=== PATIENT | female | born 1945 | race Caucasian/White ===

== ENCOUNTER 2018-04-29 15:42 | Emergency (ER) | payer OTHER, BC ==
--- NOTE | 2018-04-29 15:59 | PDOC ---
Rapid Medical Evaluation Time Seen by Provider: 04/29/18 15:55 Medical Evaluation: Allergies Allergy/AdvReac Type Severity Reaction Status Date / Time Penicillins Allergy Intermediate Hives Verified 04/09/16 07:29 I have performed a brief in-person evaluation of this patient. The patient presents with a chief complaint of: stomach ache and bad diarrhea since yesterday. However, this has happened every week for the past 5 weeks. Got an appointment with Dr. Patel for 05/19. Has lost 7lbs in 1 week. Patient did have a course of macrobid 6-7 weeks ago prior to onset of symptoms Pertinent physical exam findings: none I have ordered the following: labs, insert IV The patient will proceed to the ED for further evaluation. Discharge Disposition - Diagnosis Abdominal pain, Diarrhea, Weight loss - Referrals - Patient Instructions - Post Discharge Activity
[2018-04-29 16:00] VITALS: BP 109/59; PULSE 83; TEMP 97.4; BMI 23.8
[2018-04-29 17:08] LABS: BASO % 0.7 % (0-2.0); EOS % 1.1 % (0-4.5); HEMOGLOBIN 14.5 GM/dL (10.7-15.3); MCHC 34.6 g/dl (32.0-36.0); MEAN CELL VOLUME 95.5 fl (80-96); MEAN PLT VOLUME 9.8 fl (7.5-11.1); MONO % 8.5 % (3.8-10.2); NEUT % 58.7 % (42.8-82.8); PLATELET COUNT 248 K/MM3 (134-434); RBC 4.39 M/mm3 (3.60-5.2); RDW 12.9 % (11.6-15.6); WHITE BLOOD COUNT 11.8 K/mm3 (4.0-10.0)
[2018-04-29 17:18] LABS: URINE APPEARANCE SLCLOUDY; URINE BILIRUBIN NEGATIVE (<2.0 mg/dL); URINE COLOR AMBER; URINE GLUCOSE (UA) NEGATIVE (NEGATIVE); URINE KETONE TRACE (NEGATIVE); URINE LEUK ESTERASE 1+ (NEGATIVE); URINE NITRITE NEGATIVE (NEGATIVE); URINE PROTEIN 1+ (NEGATIVE)
[2018-04-29 17:20] LABS: EPI CELLS RARE /HPF (FEW); URINE BACTERIA FEW /hpf (NONE SEEN); URINE HYALINE CAST 1 /lpf; URINE MUCUS MANY
[2018-04-29 17:33] LABS: ALBUMIN 4.2 g/dl (3.4-5.0); ANION GAP 12 (8-16); BLOOD UREA NITROGEN 22 mg/dL (7-18); CALCIUM 9.2 mg/dL (8.5-10.1); CHLORIDE 102 mmol/L (98-107); CO2 24 mmol/L (21-32); CREATININE 1.5 mg/dL (0.55-1.02); GLUCOSE,RANDOM 111 mg/dL (74-106); POTASSIUM 3.7 mmol/L (3.5-5.1); SGOT/AST 29 U/L (15-37); SGPT/ALT 40 U/L (12-78); SODIUM 138 mmol/L (136-145)
[2018-04-29 17:35] LABS: ALK PHOS 119 U/L (45-117); BILIRUBIN,TOTAL 1.2 mg/dL (0.2-1.0); TOT PROT 7.7 g/dl (6.4-8.2)
[2018-04-29] MEDS ORDERED: SODIUM CHLORIDE 500 ML IV STA (19:41)
--- NOTE | 2018-04-29 19:42 | PDOC ---
Attending Attestation - HPI HPI: 04/29/18 20:01 The patient is a 72 year old female with a past medical history of lung CA, COPD , pancreatitis, cholecystectomy, laminectomy, and multiple sclerosis who presents to the Emergency Department with intermittent diarrhea for 5 weeks. The patient reports that she will have multiple episode of for 1-2 each of the last 5 weeks. She denies fever, chills, and nausea. - Physicial Exam PE: 04/29/18 20:01 GENERAL: Well-appearing, well-nourished. No apparent distress. HEENT: Normocephalic, atraumatic. PERRL, EOM intact. CARDIOVASCULAR: Normal S1, S2. Regular rate and rhythm. PULMONARY: Clear to auscultation bilaterally. ABDOMEN: Soft, non-distended, non-tender. EXTREMITIES: Normal ROM in all four extremities. No gross deformities. SKIN: Warm, dry. No rash NEUROLOGICAL: No focal neurological deficits. - Medical Decision Making 04/29/18 20:01 Documentation prepared by Arcenio Randle, acting as medical examiner for Manpreet Vail DO. <Arcenio Randle - Last Filed: 04/29/18 20:01> - Resident Resident Name: Filemon Cohen - ED Attending Attestation I have performed the following: I have examined & evaluated the patient, The case was reviewed & discussed with the resident, I agree w/resident's findings & plan, Exceptions are as noted - Medical Decision Making 04/29/18 22:54 Pt treated and released <Manpreet Vail - Last Filed: 04/29/18 22:54>
[2018-04-29] MEDS ORDERED: FAMOTIDINE 20 MG/50 ML IVPB 20 MG/50 ML MG IVPB ONE ×2 (19:50→20:15)
[2018-04-29] MEDS ORDERED: ONDANSETRON 4 MG/2 ML VIAL IVPUSH ONE (19:50)
--- NOTE | 2018-04-29 20:13 | PDOC ---
History of Present Illness - General Chief Complaint: Diarrhea Stated Complaint: DIARRHEA Time Seen by Provider: 04/29/18 15:55 History Source: Patient Exam Limitations: No Limitations - History of Present Illness Initial Comments: 04/29/18 20:01 Patient is a 72F with history of MS, COPD, Lung Cancer s/p RUL resection 10 years ago, former tobacco abuse here today complaining of diarrhea for the past 5 weeks. She reports having 1-2 days of diarrhea per week. She describes the stools as dark brown, denies melena and sweetie blood. Patient states that she's had this problem repeatedly and is set to see Dr Patel from GI on 05/19. Patient was prescribed macrobid for UTI 1 month ago. Patient is presenting today because she is concerned that she is now dehydrated. Endorses associated retching but no vomiting. Denies having having AAA screening. Denies fevers, chills. Denies pain with urination. Endorses vague associated abdominal pain. Past History - Past Medical History Allergies/Adverse Reactions: Allergies Allergy/AdvReac Type Severity Reaction Status Date / Time Penicillins Allergy Intermediate Hives Verified 04/09/16 07:29 Home Medications: Ambulatory Orders Calcium [Natural Calcium] 600 mg PO BID #0 tablet 10/12/13 Cyanocobalamin (Vitamin B-12) [Vitamin B-12] 100 mcg PO DAILY #0 tablet Diltiazem Cd [Cardizem Cd -] 240 mg PO DAILY #0 cap.cd.24h 10/12/13 Glatiramer Acetate [Copaxone] 20 mg SQ DAILY #0 kit 10/12/13 Paroxetine HCl [Paxil -] 10 mg PO DAILY 06/20/14 Simvastatin [Zocor -] 40 mg PO DAILY 06/20/14 Tiotropium [place] [Spiriva] 1 inh PO DAILY 06/20/14 Multivitamins [Multivit ([facility] Formulary)] 1 tab PO DAILY 11/24/15 Pregabalin [Lyrica -] 150 mg PO BID 11/24/15 Aspirin Coated [Ecotrin -] 81 mg PO DAILY #0 11/28/15 Hydrocodone/Ibuprofen [Vicoprofen 200-7.5 mg Tab] 1 tab PO PRN PRN #0 11/28/15 Diclofenac Sodium [Voltaren-Xr] 100 mg PO DAILY #0 04/09/16 Omeprazole 20 mg PO DAILY #14 tablet. 04/29/18 Ondansetron HCl [Zofran] 4 mg PO TID PRN #21 tablet 04/29/18 Sulfamethoxazole/Trimethoprim [Bactrim Ds -] 1 tab PO BID #14 tablet 04/30/18 Anemia: No Asthma: No Cancer: Yes (lung 2006) Cardiac Disorders: Yes (ATRIAL FLUTTER) CVA: No COPD: Yes (DX 2009) CHF: No Dementia: No Diabetes: No GI Disorders: Yes (PANCREATITIS-1994) Disorders: Yes (HX OF FREQUENT UTI'S-LAST 03/2016) HTN: No Hypercholesterolemia: Yes Liver Disease: No Psychiatric Problems: Yes (DEPRESSION) Seizures: No Thyroid Disease: No Other medical history: MS - Surgical History Abdominal Surgery: Yes Appendectomy: Yes () Cardiac Surgery: No Cholecystectomy: Yes (OPEN-) Lung Surgery: Yes (RIGHT UPPER LOBECTOMY 2007) Neurologic Surgery: Yes (LAMINECTOMY-) Orthopedic Surgery: Yes (LEFT FEMUR-07/2014-[facility]) - Family Disease History Family Disease History: Heart Disease: Father, CA: Sister - Reproductive History Therapeutic (s) & number: No - Suicide/Smoking/Psychosocial Hx Smoking Status: No Smoking History: Never smoked Have you smoked in the past 12 months: No Number of Cigarettes Smoked Daily: 20 If you are a former smoker, when did you quit?: 2006 Information on smoking cessation initiated: No 'Breaking Loose' booklet given: 10/09/13 Hx Alcohol Use: No Drug/Substance Use Hx: No Substance Use Type: None Hx Substance Use Treatment: No Review of Systems - Review of Systems Comments:: 04/29/18 20:14 GENERAL/CONSTITUTIONAL: No fever or chills. No weakness. HEAD, EYES, EARS, NOSE AND THROAT: No change in vision. No sore throat. CARDIOVASCULAR: No chest pain or shortness of breath RESPIRATORY: No cough, wheezing, or hemoptysis. GASTROINTESTINAL: Positive for nausea, diarrea. Negative for vomiting. GENITOURINARY: No dysuria, frequency, or change in urination. MUSCULOSKELETAL: No joint or muscle swelling or pain. No neck or back pain. SKIN: No rash NEUROLOGIC: No headache, vertigo, loss of consciousness, or change in strength/ sensation. ENDOCRINE: No increased thirst. +5 pound weight loss HEMATOLOGIC/LYMPHATIC: No anemia, easy bleeding, or history of blood clots. ALLERGIC/IMMUNOLOGIC: No hives or skin allergy. *Physical Exam - Vital Signs Last Vital Signs Temp Pulse Resp BP Pulse Ox 97.4 F L 83 18 109/59 100 04/29/18 15:56 04/29/18 15:56 04/29/18 15:56 04/29/18 15:56 04/29/18 15:56 - Physical Exam Comments: 04/29/18 20:15 GENERAL: Awake, alert, and fully oriented, in no acute distress HEAD: No signs of trauma, normocephalic, atraumatic EYES: PERRLA, EOMI, sclera anicteric, conjunctiva clear ENT: Auricles normal inspection, hearing grossly normal, nares patent, oropharynx clear without exudates. Moist mucosa NECK: Normal ROM, supple, no lymphadenopathy, JVD, or masses LUNGS: No distress, speaks full sentences, clear to auscultation bilaterally HEART: Regular rate and rhythm, normal S1 and S2, no murmurs, rubs or gallops, peripheral pulses normal and equal bilaterally. ABDOMEN: +epigastric abdominal pain, no guarding/rebound. No LLQ/suprapubic tenderness. No CVA tenderness. Pulsatile mass, not able to appreciate size EXTREMITIES: Normal inspection, Normal range of motion, no edema. No clubbing or cyanosis. NEUROLOGICAL: Cranial nerves II through XII grossly intact. Normal speech, no focal sensorimotor deficits SKIN: Warm, Dry, normal turgor, no rashes or lesions noted. ED Treatment Course - LABORATORY CBC & Chemistry Diagram: 04/29/18 16:50 04/29/18 16:50 - ADDITIONAL ORDERS Additional order review: Laboratory Results 04/29/18 04/29/18 16:50 16:50 Sodium 138 Potassium 3.7 Chloride 102 Carbon Dioxide 24 Anion Gap 12 BUN 22 H Creatinine 1.5 H Creat Clearance w eGFR 34.13 Random Glucose 111 H Calcium 9.2 Total Bilirubin 1.2 H D AST 29 ALT 40 Alkaline Phosphatase 119 H Total Protein 7.7 Albumin 4.2 Urine Color Wendy Urine Appearance Slcloudy Urine pH 5.0 Ur Specific [place] 1.024 Urine Protein 1+ H Urine Glucose (UA) Negative Urine Ketones Trace H Urine Blood Negative Urine Nitrite Negative Urine Bilirubin Negative Urine Urobilinogen 2.0 H Ur Leukocyte Esterase 1+ H Urine WBC (Auto) 30 Urine RBC (Auto) 16 Ur Epithelial Cells Rare Urine Bacteria Few Hyaline Casts 1 Urine Mucus Many 04/29/18 16:50 RBC 4.39 MCV 95.5 MCHC 34.6 RDW 12.9 MPV 9.8 Neutrophils % 58.7 D Lymphocytes % 31.0 D Monocytes % 8.5 Eosinophils % 1.1 Basophils % 0.7 D - RADIOLOGY Radiology Studies Ordered: Category Date Time Status ABDOMEN & PELVIS CT W/O CONTR [CT] Stat CT Scan 04/29/18 19:43 Ordered Medical Decision Making - Medical Decision Making 04/29/18 20:16 Patient is 72F with history of aflutter, MS, COPD, lung cancer here today complaining of diarrhea. Vital signs normal and stable. Exam shows epigastric tenderness. DDx includes, but is not limited to: UTI, infectious diarrhea, mesenteric ischemia. Low suspicion for mesenteric ischemia, but will consider it as possible diagnosis. Did not appreciate large mass suspicious for AAA, but did feel pulse in abdomen. Patient is thin, low suspicion for AAA. Will evaluate with cbc, cmp, lipase, ct abd/pelvis. Will treat with fluids, pepcid, zofran. Labs show: Laboratory Tests 11/23/14 07/06/15 04/29/18 12:48 13:00 16:50 WBC 11.8 H D Hgb 14.5 D Plt Count 248 BUN Creatinine 1.1 D 1.2 Ur Leukocyte Esterase Urine WBC (Auto) Urine RBC (Auto) Ur Epithelial Cells Urine Bacteria 04/29/18 04/29/18 16:50 16:50 WBC Hgb Plt Count BUN 22 H Creatinine 1.5 H Ur Leukocyte Esterase 1+ H Urine WBC (Auto) 30 Urine RBC (Auto) 16 Ur Epithelial Cells Rare Urine Bacteria Few CBC shows mild leukocytosis. Cr elevated to 1.5 from baseline of 1.1. UA shows evidence of UTI. Lactate and CT abd/pelvis pending. Will do CT without contrast due to Cr elevation and GFR. 04/29/18 22:54 After pepcid, patient states that her burning gnawing pain has completely resolved. Lactate and lipase had not been drawn. Cancelled as we do not suspect pancreatitis or mesenteric ischemia. 04/29/18 23:39 CT of abdomen shows normal caliber aorta, no acute pathology. Patient continues to feel improved, has GI follow up on 05/[address] Patel. Will discharge home with omeprazole and zofran. Return precautions given. 04/30/18 00:16 Outpatient prescription for UTI forgotten to give patient at discharge. Sent to patient's pharmacy with other prescriptions. Phone call placed at patient's home , message left. *DC/Admit/Observation/Transfer Diagnosis at time of Disposition: Abdominal pain, Diarrhea, Weight loss - Discharge Dispostion Disposition: HOME Condition at time of disposition: Good Decision to Admit order: No - Prescriptions Prescriptions: Omeprazole 20 mg PO DAILY #14 tablet. Ondansetron HCl [Zofran] 4 mg PO TID PRN #21 tablet PRN Reason: Nausea And/Or Vomiting Sulfamethoxazole/Trimethoprim [Bactrim Ds -] 1 tab PO BID #14 tablet - Referrals Referrals: Cedric Calero MD [Primary Care Provider] - - Patient Instructions Printed Discharge Instructions: DI for Diarrhea and Traveler's Diarrhea -- Adult Additional Instructions: You were seen today in the ED for abdominal pain and diarrhea. Please return if you have any new, worsening or concerning symptoms. Please return if your abdominal pain worsens, you cannot tolerate drinking or eating, or if you feel weak. Please follow up with Dr Patel as already scheduled. Please call your PCP tomorrow for additional follow up. - Post Discharge Activity
[2018-04-29] MEDS ORDERED: ONDANSETRON 4 MG/2 ML VIAL ONE (20:14)
[2018-04-29] MEDS ORDERED: ACETAMINOPHEN 325 MG TABLET (FP) PO ONE (21:53)
[2018-04-29] MEDS ORDERED: LACTULOSE 20 GM/30 ML UDC (FOR ORAL USE ONLY) PO ONE (23:08)
[2018-04-29] MEDS ORDERED: ACETAMINOPHEN 325 MG TABLET (FP) ONE (23:52)
[2018-04-30 15:42] LABS: LIPASE 115 U/L (73-393)
--- NOTE | 2018-05-03 07:45 | PDOC ---
Patient Follow-up (Call Back) - Post ED Follow - Up Condition at time of discharge: Good Disposition at time of original discharge: HOME Reason for Call Back: Abnwl. Microbiology (Pt. on Bactrim. UC shows Klebsiella with sensitivity to bactrim. No further action needed at this time.)
== END 2018-04-30 00:48 | disposition home or self-care (01) ==
LOC: JER 15:42
PROC: 3E033GC Introduction of Other Therapeutic Substance into Peripheral Vein, Percutaneous Approach (ICD-10-PCS; principal; 2018-04-29)
PROC: 3E0337Z Introduction of Electrolytic and Water Balance Substance into Peripheral Vein, Percutaneous Approach (ICD-10-PCS; 2018-04-29)
DX: R10.9 Unspecified abdominal pain (principal); R19.7 Diarrhea, unspecified; R63.4 Abnormal weight loss
CPT/HCPCS: 36415; 74176-TC; 80053; 81003; 81015; 83690; 85025; 87086; 87186; 99283-25

== ENCOUNTER 2018-05-28 09:30 | Inpatient (IN) | payer OTHER, BC ==
[2018-05-28 09:40] VITALS: BMI 24.2
--- NOTE | 2018-05-28 10:02 | PDOC ---
History of Present Illness - General Chief Complaint: Diarrhea Stated Complaint: DIARRHEA Time Seen by Provider: 05/28/18 09:35 Past History - Past Medical History Allergies/Adverse Reactions: Allergies Allergy/AdvReac Type Severity Reaction Status Date / Time Penicillins Allergy Intermediate Hives Verified 05/28/18 09:31 Home Medications: Ambulatory Orders Calcium [Natural Calcium] 600 mg PO BID #0 tablet 10/12/13 Paroxetine HCl [Paxil -] 37.5 mg PO DAILY 06/20/14 Multivitamins [Multivit ([facility] Formulary)] 1 tab PO DAILY 11/24/15 Pregabalin [Lyrica -] 200 mg PO BID 11/24/15 Aspirin Coated [Ecotrin -] 81 mg PO DAILY #0 11/28/15 Diclofenac Sodium [Voltaren-Xr] 100 mg PO DAILY #0 04/09/16 Albuterol Sulfate Inhaler - [Ventolin Hfa Inhaler -] 1 - 2 inh PO Q4H PRN Diltiazem HCl [Cartia Xt] 120 mg PO DAILY 05/28/18 Umeclidinium [place] [Incruse Ellipta] 62.5 mcg IH DAILY 05/28/18 Vitamin B Complex 1 each PO DAILY 05/28/18 Anemia: No Asthma: No Cancer: Yes (lung 2006) Cardiac Disorders: Yes (ATRIAL FLUTTER) CVA: No COPD: Yes (DX 2009) CHF: No Dementia: No Diabetes: No GI Disorders: Yes (PANCREATITIS-1994) Disorders: Yes (HX OF FREQUENT UTI'S-LAST 03/2016) HTN: No Hypercholesterolemia: Yes Liver Disease: No Psychiatric Problems: Yes (DEPRESSION) Seizures: No Thyroid Disease: No - Surgical History Abdominal Surgery: Yes Appendectomy: Yes (S) Cardiac Surgery: No Cholecystectomy: Yes (OPEN-) Lung Surgery: Yes (RIGHT UPPER LOBECTOMY 2007) Neurologic Surgery: Yes (LAMINECTOMY-) Orthopedic Surgery: Yes (LEFT FEMUR-07/2014-[facility]) - Family Disease History Family Disease History: Heart Disease: Father, CA: Sister - Reproductive History Therapeutic (s) & number: No - Suicide/Smoking/Psychosocial Hx Smoking Status: No Smoking History: Former smoker Have you smoked in the past 12 months: No Number of Cigarettes Smoked Daily: 20 If you are a former smoker, when did you quit?: 2006 Information on smoking cessation initiated: No 'Breaking Loose' booklet given: 10/09/13 Hx Alcohol Use: No Drug/Substance Use Hx: No Substance Use Type: None Hx Substance Use Treatment: No Abd/GI Specific PMHX - Complaint Specific PMHX Pancreatitis: Yes *Physical Exam - Vital Signs Last Vital Signs Temp Pulse Resp BP Pulse Ox 97.9 F 80 16 161/79 96 05/28/18 09:30 05/28/18 09:30 05/28/18 09:30 05/28/18 09:30 05/28/18 09:30 ED Treatment Course - LABORATORY CBC & Chemistry Diagram: 05/30/18 07:12 05/30/18 07:12 Medical Decision Making - Medical Decision Making 05/30/18 11:24 see my attending note documented separately *DC/Admit/Observation/Transfer Diagnosis at time of Disposition: UTI (urinary tract infection) - Discharge Dispostion Condition at time of disposition: Stable - Referrals - Patient Instructions - Post Discharge Activity
--- NOTE | 2018-05-28 10:05 | PDOC ---
Attending Attestation - Resident Resident Name: VenusNash zamora - ED Attending Attestation I have performed the following: I have examined & evaluated the patient, The case was reviewed & discussed with the resident, I agree w/resident's findings & plan, Exceptions are as noted - HPI HPI: 05/28/18 10:27 72y F hx of panmcreatitis, MS, COPD, lung CA s/p RUL resection, cholecystecomy presents with 10 weeks of intermittent watery stool and abdominal pain, a few watery, yellowish stool for the past 10 weeks, now is watery has wosrening and incraesed frequency since last night associated with sharp, nonradiating epigastric pain. no association or worsening with eating or bms. pt denies any fever/chills, cp, sob, diaphoresis, dysuria, melena, bpr, foul smelling urine. pt was on bactrim recently for a dirty urine during a recent ED visit. pt was here in the ED earlier this month and had a CT noted for thickening of duodenum and stomach during the same visit. pt denies any numbness/tingling/ewakness, headache, cough, cervantes, worsening of sypmtoms with exertion. - Physicial Exam PE: 05/28/18 11:54 ROS: Constitutional - no reported Fever, Chills, HEENT: no reported vision changes, sore throat Respiratory: no reported cough, sob, hemoptysis Cardiac: no reported chest pain, palpitations, light headedness, leg swelling Abd/GI: +abd pain, diarrhea no reported nausea, vomiting, blood per rectum, melena, : no reported dysuria, frequency, discharge Musculskelatal - no reported back pain, joint swelling skin - no reported bruising, erythema, rash neurological: no reported headache, numbness, focal weakness, tingling, ataxia, hematologic: no reported easy bruising, easy bleeding GENERAL: The patient is awake, alert, and fully oriented, Nontoxic - in no acute distress. HEAD: Normocephalic, atraumatic. EYES: extraocular movements intact, sclera anicteric, conjunctiva clear. ENT: Normal voice, Moist mucous membranes. NECK: Normal range of motion, supple LUNGS: Breath sounds equal, clear to auscultation bilaterally. No wheezes, no rhonchi, no rales. HEART: Regular rate and rhythm, normal S1 and S2 without murmur, rub or gallop. ABDOMEN: Soft, nontender, hyperactive bowel sounds. No guarding, no rebound. No CVA tenderness EXTREMITIES: Normal range of motion, no edema. NEUROLOGICAL: No facial assymetry, Normal speech, movnig all 4 extremities sptonaenously and symmetrically PSYCH: Normal mood, normal affect. SKIN: Warm, Dry, normal turgor, - Medical Decision Making 05/28/18 12:14 ddx diarrhea - ?abx related vs viral abd pain - ?pancreatitis vs gastritis pts labs reviewed unremarkble UA suggestive of UTI - prior culture grew klebsiela oxytoca -- urine is now nitrite positive will discuss with her urologist regarding further recommendation as pt is otherwise asypmtomatic 05/28/18 15:14 case was discusesd with Dr. Figueroa (Uro) - requests admission for IVAbx - discsused with dr. Calero (PMD) who requested ID consult (Dr. Adames) after discussion with dR. Adames - agrees with admission for IV abx will admit to med/surg under dr. Chahal service
[2018-05-28] MEDS ORDERED: SODIUM CHLORIDE 1,000 ML IV ONE (10:38)
[2018-05-28] MEDS ORDERED: MAG HYDROX/AL HYDROX/SIMETH -MYLANTA- ORAL SUSPENSION PO ONE (10:41)
[2018-05-28] MEDS ORDERED: FAMOTIDINE 20 MG/50 ML IVPB 20 MG in PREMIX 50 IVPB ONE (10:41)
[2018-05-28 10:44] LABS: BASO % 0.3 % (0-2.0); EOS % 0.3 % (0-4.5); HEMATOCRIT 43.2 % (32.4-45.2); HEMOGLOBIN 14.9 GM/dl (10.7-15.3); LYMPH % 13.6 % (8-40); MCH 33.1 pg (25.7-33.7); MCHC 34.5 g/dl (32.0-36.0); MEAN CELL VOLUME 95.8 fl (80-96); MEAN PLT VOLUME 9.9 fl (7.5-11.1); MONO % 2.7 % (3.8-10.2); NEUT % 83.1 % (42.8-82.8); PLATELET COUNT 253 K/MM3 (134-434); RBC 4.51 M/mm3 (3.60-5.2); RDW 11.9 % (11.6-15.6); WHITE BLOOD COUNT 11.9 K/mm3 (4.0-10.8)
[2018-05-28] MEDS ORDERED: MAG HYDROX/AL HYDROX/SIMETH 30 ML UNIT-DOSE CUP ONE (10:46)
[2018-05-28] MEDS ORDERED: FAMOTIDINE 20 MG/50 ML IVPB 20 MG/50 ML MG IVPB ONE (10:46)
[2018-05-28 10:53] LABS: ALBUMIN 4.3 g/dl (3.5-5.0); ALK PHOS 93 U/L (32-92); ANION GAP 10 (8-16); BILIRUBIN,TOTAL 1.4 mg/dl (0.2-1.0); BLOOD UREA NITROGEN 19 mg/dl (7-18); CALCIUM 9.3 mg/dl (8.4-10.2); CHLORIDE 105 mmol/L (98-107); CO2 23 mmol/L (22-28); GLUCOSE,RANDOM 123 mg/dl (74-106); POTASSIUM 3.9 mmol/L (3.5-5.1); SGOT/AST 36 U/L (10-42); SGPT/ALT 30 U/L (10-40); SODIUM 138 mmol/L (136-145); TOT PROT 7.3 g/dl (6.4-8.3)
--- NOTE | 2018-05-28 10:59 | PDOC ---
History of Present Illness - General Chief Complaint: Diarrhea Stated Complaint: DIARRHEA Time Seen by Provider: 05/28/18 09:35 History Source: Patient, Other ( daughter) Exam Limitations: No Limitations - History of Present Illness Travel History: No Initial Comments: 05/28/18 10:49 72 yo female, PMH significant for Pancreatitis, frequent UTIs (finished last course of antibiotics 2 weeks ago), multiple sclerosis, COPD, lung cancer with RUL resection 10 years ago and a former smoker presents to ED for a 10 week history of abdominal pain and non bloody diarrhea. Pt admits to having 1-2 lose stools per week which are described as watery and yellow. Her pain is located in the epigastric region and is described as gnawing, non radiating and more intense recently. Nothing makes the pain worse or better.Of note, pt was seen at [facility] on April 29 for similar complaints, abdominal CT showed distal gastric wall thickening duodenal sweep with concerns for gastritis. Pt followed up with GI (Dr. Patel) on May 06 and a negative stool sample was attained. Pt denies anyone close contacts with similar s/s, recent travel, f/c/n/v, urinary frequency or dysuria, CP, SOB or exertional s/s. Timing/Duration: reports: intermittent (10 weeks on and off) Past History - Past Medical History Allergies/Adverse Reactions: Allergies Allergy/AdvReac Type Severity Reaction Status Date / Time Penicillins Allergy Intermediate Hives Verified 05/28/18 09:31 Home Medications: Ambulatory Orders Calcium [Natural Calcium] 600 mg PO BID #0 tablet 10/12/13 Paroxetine HCl [Paxil -] 37.5 mg PO DAILY 06/20/14 Simvastatin [Zocor -] 40 mg PO DAILY 06/20/14 Multivitamins [Multivit ([facility] Formulary)] 1 tab PO DAILY 11/24/15 Pregabalin [Lyrica -] 200 mg PO BID 11/24/15 Aspirin Coated [Ecotrin -] 81 mg PO DAILY #0 11/28/15 Diclofenac Sodium [Voltaren-Xr] 100 mg PO DAILY #0 04/09/16 Albuterol Sulfate Inhaler - [Ventolin Hfa Inhaler -] 1 - 2 inh PO Q4H PRN Diltiazem HCl [Cartia Xt] 120 mg PO DAILY 05/28/18 Glatiramer Acetate [Copaxone] 40 mg SQ ASDIR 05/28/18 Umeclidinium [place] [Incruse Ellipta] 62.5 mcg IH DAILY 05/28/18 Vitamin B Complex 1 each PO DAILY 05/28/18 Anemia: No Asthma: No Cancer: Yes (lung 2006) Cardiac Disorders: Yes (ATRIAL FLUTTER) CVA: No COPD: Yes (DX 2009) CHF: No Dementia: No Diabetes: No GI Disorders: Yes (PANCREATITIS-1994) Disorders: Yes (HX OF FREQUENT UTI'S-LAST 03/2016) HTN: No Hypercholesterolemia: Yes Liver Disease: No Psychiatric Problems: Yes (DEPRESSION) Seizures: No Thyroid Disease: No - Surgical History Abdominal Surgery: Yes Appendectomy: Yes () Cardiac Surgery: No Cholecystectomy: Yes (OPEN-) Lung Surgery: Yes (RIGHT UPPER LOBECTOMY 2007) Neurologic Surgery: Yes (LAMINECTOMY-) Orthopedic Surgery: Yes (LEFT FEMUR-07/2014-[facility] PLACEMENT) - Family Disease History Family Disease History: Heart Disease: Father, CA: Sister - Reproductive History Therapeutic (s) & number: No - Suicide/Smoking/Psychosocial Hx Smoking Status: No Smoking History: Former smoker Have you smoked in the past 12 months: No Number of Cigarettes Smoked Daily: 20 If you are a former smoker, when did you quit?: 2006 Information on smoking cessation initiated: No 'Breaking Loose' booklet given: 10/09/13 Hx Alcohol Use: No Drug/Substance Use Hx: No Substance Use Type: None Hx Substance Use Treatment: No Abd/GI Specific PMHX - Complaint Specific PMHX Pancreatitis: Yes Review of Systems - Review of Systems Able to Perform ROS?: Yes Constitutional: No: Chills, Diaphoresis, Fever, Weakness Respiratory: No: Cough, Shortness of Breath, SOB with Exertion Cardiac (ROS): No: Chest Pain, Edema, Palpitations, Syncope ABD/GI: Yes: Diarrhea. No: Abdominal Distended, Abd. Pain w/ defecation, Blood Streaked Bowels, Constipated, Nausea, Vomiting : No: Burning, Dysuria, Discharge, Frequency, Flank Pain, Hematuria Musculoskeletal: No: Back Pain Neurological: No: Headache, Dizziness *Physical Exam - Vital Signs Last Vital Signs Temp Pulse Resp BP Pulse Ox 97.9 F 80 16 161/79 96 05/28/18 09:30 05/28/18 09:30 05/28/18 09:30 05/28/18 09:30 05/28/18 09:30 - Physical Exam General Appearance: Yes: Nourished, Appropriately Dressed. No: Apparent Distress HEENT: positive: EOMI, Normal ENT Inspection Neck: negative: Carotid bruit Respiratory/Chest: positive: Lungs Clear, Normal Breath Sounds. negative: Respiratory Distress, Crackles, Rales, Rhonchi, Stridor, Wheezing Cardiovascular: positive: Regular Rhythm, Regular Rate, S1, S2. negative: Edema , JVD, Murmur Vascular Pulses: Dorsalis-Pedis (R): 4+, Doralis-Pedis (L): 4+ Gastrointestinal/Abdominal: positive: Normal Bowel Sounds, Tender, Soft, Tenderness (epigastric). negative: Pulsatile Mass, Protuberent, Distended, Guarding, Rebound Musculoskeletal: negative: CVA Tenderness Extremity: positive: Normal Inspection. negative: Pedal Edema, Swelling Integumentary: positive: Dry, Warm. negative: Cyanotic, Jaundice Neurologic: positive: dice spotter II-XII NML intact, Fully Oriented, Alert, Normal Mood/ Affect, Normal Response, Motor Strength 5/5 Heart Score/ECG Review - History History: Slightly suspicious - Electrocardiogram EKG: Normal - Age Age: >/= 65 - Risk Factors Risk Factors Heart Score: No Hx Hypercholesterolemia, No Hx Hypertension, No Hx Diabetes, No Hx Obesity Based on the list above the patient has:: 1-2 risk factors - Troponin Troponin: </= normal limit - Score Heart Score - Total: 3 - ECG Impressions Normal ECG: Yes Non-specific ST Elevation: No Ischemic Changes: No ED Treatment Course - LABORATORY CBC & Chemistry Diagram: 05/28/18 10:11 05/28/18 10:14 - ADDITIONAL ORDERS Additional order review: 05/28/18 10:11 RBC 4.51 MCV 95.8 MCHC 34.5 RDW 11.9 MPV 9.9 Neutrophils % 83.1 H Lymphocytes % 13.6 Monocytes % 2.7 L Eosinophils % 0.3 Basophils % 0.3 Medical Decision Making - Medical Decision Making 05/28/18 11:45 72 yo female, PMH of frequent UTIs, pancreatitis, MS presents to ED for a 10 week history of loose stools and epigastric pain. On exam, epigastric tenderness was elicited, Pepcid, Maalox and 1L NS given. DDx includes but is not limited to: ACS, gastritis, UTI, antibiotic associated diarrhea, IBS. Negative CT scan 1 month ago reassuring for no AAA or mesenteric ischemia. CBC, CMP, Lipase and Cardiac profile ordered. Patient resting comfortably, states pain has reduced after receiving Maalox and Pepcid 05/28/18 15:[address] Adames (ID) who recommends inpatient IV antibiotics due to failed outpatient therapies. Also spoke with Dr. Figueroa who would like inpatient IV antibiotics. Spoke with Dr. Wyatt Johnson who will be the admitting physician. *DC/Admit/Observation/Transfer Diagnosis at time of Disposition: UTI (urinary tract infection) Qualifiers: Urinary tract infection type: site unspecified Hematuria presence: without hematuria Qualified Code(s): N39.0 - Urinary tract infection, site not specified - Discharge Dispostion Condition at time of disposition: Stable Decision to Admit order: Yes - Referrals Referrals: Cedric Calero MD [Primary Care Provider] - - Patient Instructions - Post Discharge Activity
[2018-05-28 11:07] LABS: PH,URINE 5.5 (4.5-8); URINE APPEARANCE Cloudy; URINE BILIRUBIN Negative (NEGATIVE); URINE COLOR Amber; URINE GLUCOSE (UA) Negative (NEGATIVE); URINE KETONE 1+ (NEGATIVE); URINE NITRITE Positive (NEGATIVE); URINE PROTEIN Trace (NEGATIVE); URINE UROBILINOGEN 0.2 (0.2-1.0)
[2018-05-28 11:08] LABS: URINE LEUK ESTERASE TRACE (NEGATIVE)
[2018-05-28 11:42] LABS: EPI CELLS FEW /HPF
[2018-05-28 11:43] LABS: URINE BACTERIA MANY /hpf (NEGATIVE)
[2018-05-28 11:48] LABS: LIPASE 106 U/L (73-393)
[2018-05-28] MEDS ORDERED: CEFTRIAXONE 1,000 MG in DEXTROSE 5%-WATER - 50 ML IVPB ONE (14:02)
[2018-05-28] MEDS ORDERED: cefTRIAXone SODIUM 1 GM VIAL ONE (14:07)
[2018-05-28] MEDS ORDERED: ACETAMINOPHEN 650 MG/20.3 ML ORAL SOLUTION (CUPS) PO ONE (14:35)
[2018-05-28] MEDS ORDERED: ACETAMINOPHEN 325 MG TABLET (FP) ONE (14:40)
[2018-05-28] MEDS ORDERED: ALBUTEROL SO4 8 GM HFA INHALER IH PRN (15:39)
[2018-05-28] MEDS ORDERED: PATIENT'S OWN MEDICATION (NON-FORMULARY) (Glatiramer Acetate [Copaxone] 40 MG) SQ SCH (15:45)
[2018-05-28] MEDS ORDERED: HYDROmorphone HCL CARPU-JECT 2 MG/1 ML DISP.SYRIN IVPB PRN (15:59)
--- NOTE | 2018-05-28 16:55 | CON.ID ---
Consult Consult Specialty:: infectious diseases Referred by:: Dr Lai Reason for Consultation:: abd pain,uti - History of Present Illness Chief Complaint: abd pain History of Present Illness: 72y F hx of pancreatitis, MS, COPD, lung CA s/p RUL resection, cholecystecomy presents with 10 weeks of intermittent watery stool and abdominal pain, a few watery, yellowish stool for the past 10 weeks, now is watery has worsening and increased frequency since last night associated with sharp, nonradiating epigastric pain. no association or worsening with eating or bms. pt denies any fever/chills, cp, sob, diaphoresis, dysuria, melena, bpr, foul smelling urine. pt was on bactrim recently for a dirty urine during a recent ED visit. pt was here in the ED earlier this month and had a CT noted for thickening of duodenum and stomach during the same visit. patient has been visiting the urologist frequently and she has failed outpatient treatment couple of times and her urologist has send her here to see if she again has uti and then decide how to manage further and to get iv abx if needed - History Source History Provided By: Patient Limitations to Obtaining History: No Limitations - Alcohol/Substance Use Hx Alcohol Use: No - Smoking History Smoking history: Former smoker Have you smoked in the past 12 months: No Aproximately how many cigarettes per day: 20 If you are a former smoker, when did you quit?: 2006 Home Medications - Allergies Allergies/Adverse Reactions: Allergies Allergy/AdvReac Type Severity Reaction Status Date / Time Penicillins Allergy Intermediate Hives Verified 05/28/18 09:31 - Home Medications Home Medications: Ambulatory Orders Calcium [Natural Calcium] 600 mg PO BID #0 tablet 10/12/13 Paroxetine HCl [Paxil -] 37.5 mg PO DAILY 06/20/14 Multivitamins [Multivit ([facility] Formulary)] 1 tab PO DAILY 11/24/15 Pregabalin [Lyrica -] 200 mg PO BID 11/24/15 Aspirin Coated [Ecotrin -] 81 mg PO DAILY #0 11/28/15 Diclofenac Sodium [Voltaren-Xr] 100 mg PO DAILY #0 04/09/16 Albuterol Sulfate Inhaler - [Ventolin Hfa Inhaler -] 1 - 2 inh PO Q4H PRN Diltiazem HCl [Cartia Xt] 120 mg PO DAILY 05/28/18 Umeclidinium [place] [Incruse Ellipta] 62.5 mcg IH DAILY 05/28/18 Vitamin B Complex 1 each PO DAILY 05/28/18 Review of Systems - Review of Systems Constitutional: reports: No Symptoms Eyes: reports: No Symptoms HENT: reports: No Symptoms Neck: reports: No Symptoms Cardiovascular: reports: No Symptoms Respiratory: reports: No Symptoms Gastrointestinal: reports: Abdominal Pain, Diarrhea Genitourinary: reports: Burning Musculoskeletal: reports: No Symptoms Integumentary: reports: No Symptoms Neurological: reports: No Symptoms Endocrine: reports: No Symptoms Hematology/Lymphatic: reports: No Symptoms Psychiatric: reports: No Symptoms Physical Exam Vital Signs: Vital Signs Temperature 97.9 F 05/28/18 09:30 Pulse Rate 80 05/28/18 09:30 Respiratory Rate 16 05/28/18 09:30 Blood Pressure 161/79 05/28/18 09:30 O2 Sat by Pulse Oximetry (%) 96 05/28/18 09:30 Constitutional: Yes: Well Nourished, No Distress, Calm Eyes: Yes: Conjunctiva Clear HENT: Yes: Atraumatic Neck: Yes: Supple, Trachea Midline Cardiovascular: Yes: Regular Rate and Rhythm Respiratory: Yes: Regular, CTA Bilaterally Gastrointestinal: Yes: Normal Bowel Sounds, Soft Musculoskeletal: Yes: WNL Extremities: Yes: WNL Labs: CBC, BMP 05/28/18 10:11 05/28/18 10:14 Assessment/Plan patient coming to the hospital because of abd pain dirrhoea and repeated uti and failed outpatient treatment for uti uti abd pain dirrhoea dysuria plan patient has been started on ceftriaxone will continue the management await for cx reports rest as per gi
[2018-05-28] MEDS ORDERED: PANTOPRAZOLE SODIUM 40 MG VIAL ONE (16:58)
[2018-05-28] MEDS: PANTOPRAZOLE SODIUM 40 MG VIAL IVPUSH SCH (17:00)
[2018-05-28] MEDS ORDERED: MAGNESIUM 1GM/D5W - 2 GM/200 ML IVPB IVPB ONE (17:35)
--- NOTE | 2018-05-28 19:18 | HP ---
Admitting History and Physical - Primary Care Physician PCP: Cedric Calero - Admission Chief Complaint: Diarrhe and abdominal pain History of Present Illness: 72 yrs old pleasant f multiple medical Co-morbidities ex smoker h/O COPD, Ca Lung s/p Rt UL resection now in remission, HTN, Multiple sclerosis in remission off treatment, recurrent UTI mostly asymptomatic for past many years F/U , patient was on Supprresive Microbid Therapy lately completed PO Bactrim in April 2018 for Kleibsella UTI, patient has been having off and on watery diarrhea with epigastric pain and nausea for past 10 wks previously evaluated at [facility] on 05/03/2018 , patient underwent CT abd that shows Duodenal and gastric wall thickness, post discharge evaluated by GI recommmonded PO Famoytidine, on Friday developed abdominal pain with nausea nd watery diarrhea, pain was situated in epigastric area, crampy, 8/10, couldnt tolerate PO socalled her and dropped a urine sample for evaluation, symptoms perssted yesterday patient passed multiplewatery stool not mixed with blood or mucous , isaías dehydrates so came to Ed for evaluation, mean time urine sample collected at her uroogist office grew E Colli resistant to cipro , ID consulted atmitted for IV abx and further management. No c/o Dysuria, fever chills, CVA tenderness , c/o mild suprapubic tenderness. 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: Multiple Sclerosis Cardiovascular: Yes: HTN, Hyperlipdemia Pulmonary: Yes: COPD Gastrointestinal: Yes: Pancreatitis Hepatobiliary: Yes: Other Heme/Onc: Yes: Other (Ca Lung) Psych: Yes: Anxiety, Depression Musculoskeletal: Yes: Chronic low back pain - Past Surgical History Additional Past Surgical History: Rt lung UL resection - Smoking History Smoking history: Former smoker Have you smoked in the past 12 months: No Aproximately how many cigarettes per day: 20 If you are a former smoker, when did you quit?: 2006 - Alcohol/Substance Use Hx Alcohol Use: No - Social History Usual Living Arrangement: Yes: Alone ADL: Independent History of Recent Travel: No Home Medications - Allergies Allergies/Adverse Reactions: Allergies Allergy/AdvReac Type Severity Reaction Status Date / Time Penicillins Allergy Intermediate Hives Verified 05/28/18 09:31 - Home Medications Home Medications: Ambulatory Orders Calcium [Natural Calcium] 600 mg PO BID #0 tablet 10/12/13 Paroxetine HCl [Paxil -] 37.5 mg PO DAILY 06/20/14 Multivitamins [Multivit ([facility] Formul[facility])] 1 tab PO DAILY 11/24/15 Pregabalin [Lyrica -] 200 mg PO BID 11/24/15 Aspirin Coated [Ecotrin -] 81 mg PO DAILY #0 11/28/15 Diclofenac Sodium [Voltaren-Xr] 100 mg PO DAILY #0 04/09/16 Albuterol Sulfate Inhaler - [Ventolin HFA Inhaler -] 1 - 2 inh PO Q4H PRN Diltiazem HCl [Cartia Xt] 120 mg PO DAILY 05/28/18 Umeclidinium [place] [Incruse Ellipta] 62.5 mcg IH DAILY 05/28/18 Vitamin B Complex 1 each PO DAILY 05/28/18 Atorvastatin Ca [Lipitor] 20 mg PO HS tablet 05/30/18 Cefuroxime Axetil [Ceftin -] 250 mg PO BID 7 Days #14 tablet 05/30/18 Ranitidine [Zantac -] 150 mg PO DAILY #30 tablet 05/30/18 Family Disease History - Family Disease History Family History: Unremarkable Review of Systems - Review of Systems Constitutional: reports: Lethargy, Loss of Appetite, Malaise Eyes: reports: No Symptoms HENT: denies: Difficult Swallowing, Ear Discharge, Ear Pain Neck: denies: Decreased ROM, Lumps, Pain on Movement Cardiovascular: denies: Chest Pain, Edema, Palpitations Respiratory: denies: Cough, Exercise Intolerance, Hemoptysis, Orthopnea, PND Gastrointestinal: reports: Abdominal Pain, Bloating, Diarrhea, Nausea, Vomiting. denies: Melena, Rectal Bleeding Genitourinary: denies: Burning, Discharge, Dysuria, Flank Pain Integumentary: denies: Blister, Bruising, Change in Color Neurological: denies: Change in LOC, Change in Speech, Confusion Endocrine: denies: Excessive Sweating, Flushing, Increased Hunger Hematology/Lymphatic: denies: Easily Bruised, Excessive Bleeding, Swollen Glands Psychiatric: denies: Altered Sleep Pattern, Anxiety, Depression Pain Intensity: 4 Physical Examination Vital Signs: Vital Signs Temperature 98.5 F 05/28/18 10:39 Pulse Rate 86 05/28/18 10:39 Respiratory Rate 16 05/28/18 10:39 Blood Pressure 159/77 05/28/18 10:39 O2 Sat by Pulse Oximetry (%) 96 05/28/18 10:39 Constitutional: Yes: Mild Distress Eyes: Yes: Conjunctiva Clear, EOM Intact HENT: Yes: Atraumatic, Normocephalic Neck: Yes: Supple, Trachea Midline. No: Decreased ROM, Lymphadenopathy Cardiovascular: Yes: Regular Rate and Rhythm, S1, S2. No: JVD, Gallop, Murmur Respiratory: Yes: CTA Bilaterally Gastrointestinal: Yes: Normal Bowel Sounds, Soft, Tenderness, Epigastrium Edema: No Peripheral Pulses: Left Doralis Pedis: 1+, Right Dorsalis Pedis: 1+ Neurological: Yes: Alert, Oriented. No: Aphasia ...Motor Strength: WNL, LUE, LLE, RUE, RLE Psychiatric: Yes: Alert, Oriented. No: Agitated, Suicidal Ideation Labs: CBC, BMP 05/28/18 10:11 05/28/18 10:14 Mag 1.2 Imaging - Results Cat Scan: Report Reviewed (Ct scan abd on 05/01: Duodenal and Gsatric thickening) EKG: Report Reviewed ([address] chnages) Problem List - Problems (1) Abdominal pain Assessment/Plan: Patient present with abd pain diffuse in the setting of UTI and Diarrhea,will start PO as tolerates, received IV Ceftriaxone as per sensitivity will f/u Stool w/u and U culture Code(s): R10.9 - UNSPECIFIED ABDOMINAL PAIN (2) Diarrhea Assessment/Plan: Recurrent diarrhea for past 10days will evaluate for infectious/ non infectious diarrhea last Ct shows Duodenitis F/U Stool H Pylori, Stool culture, Stool WBC and stool ova and parasites, GI consult as per w/u. Code(s): R19.7 - DIARRHEA, UNSPECIFIED (3) UTI (urinary tract infection) Assessment/Plan: As per urine Collected on Friday Grew E Colli resistant to Cipro patient is unable to tolerate PO due to nausea, abd pain and diarrhea will start on IV Ceftriaxone F/U Urine culture result, switch to Po once Gi symptoms resolves. Code(s): N39.0 - URINARY TRACT INFECTION, SITE NOT SPECIFIED Qualifiers: Urinary tract infection type: site unspecified Hematuria presence: without hematuria Qualified Code(s): N39.0 - Urinary tract infection, site not specified (4) Dehydration Assessment/Plan: Due to adirrhea IV Hydration F/U BMP Code(s): E86.0 - DEHYDRATION (5) Hypomagnesemia Assessment/Plan: Mag 1.2 due to GI lose replete MagSo4 2 gm IVSS Code(s): E83.42 - HYPOMAGNESEMIA (6) HTN (hypertension) Assessment/Plan: Well controlled cont all home meds Code(s): I10 - ESSENTIAL (PRIMARY) HYPERTENSION (7) COPD (chronic obstructive pulmonary disease) Assessment/Plan: Ex smoker s/p Rt Partial lung resection Ca Lung at present well controlled on current regimen, cont same. Code(s): J44.9 - CHRONIC OBSTRUCTIVE PULMONARY DISEASE, UNSPECIFIED (8) Carcinoma of lung Assessment/Plan: S/p resection Rt UL now in remission. Code(s): C34.90 - MALIGNANT NEOPLASM OF UNSP PART OF UNSP BRONCHUS OR LUNG Qualifiers: Laterality: right Qualified Code(s): C34.91 - Malignant neoplasm of unspecified part of right bronchus or lung (9) Multiple sclerosis Assessment/Plan: In remission no focal symptoms off meds F/U with Neurology as out patient. Code(s): G35 - MULTIPLE SCLEROSIS Assessment/Plan Active Medications Generic Name Dose Route Start Last Admin Trade Name Freq PRN Reason Stop Dose Admin Albuterol Sulfate 1 puff 05/28/18 15:39 Ventolin Hfa Inhaler - IH Q4H PRN WHEEZING Aspirin 81 mg 05/29/18 10:00 Ecotrin - PO DAILY ROBB Atorvastatin Calcium 20 mg 05/28/18 22:00 05/28/18 21:42 Lipitor - PO 20 mg HS ROBB Administration Diltiazem HCl 120 mg 05/29/18 10:00 Cardizem Cd - PO DAILY ROBB Hydromorphone HCl 1 mg 05/28/18 15:59 Dilaudid Injection - IVPB Q6H PRN PAIN LEVEL 1 - 3 Potassium Chloride/Dextrose/Sod Cl 10 meq in 1,000 mls @ 75 mls/hr 05/28/18 16 :00 05/28/18 22:53 D5-1/2ns+10 Meq Kcl - IV 75 mls/hr ASDIR ROBB Administration Ceftriaxone Sodium 1 gm in 50 mls @ 100 mls/hr 05/29/18 10:00 Rocephin 1gm Ivpb (Pre-Docked) IVPB DAILY ROBB Multivitamins 1 each 05/29/18 10:00 Total B With C - PO DAILY ROBB Multivitamins/Minerals/Vitamin C 1 tab 05/29/18 10:00 Tab-A-Vit - PO DAILY ROBB Non-Formulary Medication 62.5 mcg 05/29/18 10:00 Umeclidinium [place] [Incruse Ellipta] IH DAILY ROBB Pantoprazole Sodium 40 mg 05/28/18 16:00 05/28/18 17:00 Protonix Iv IVPUSH 40 mg DAILY ROBB Administration Paroxetine HCl 37.5 mg 05/29/18 10:00 Paxil - PO DAILY ROBB Pregabalin 200 mg 05/28/18 22:00 05/28/18 21:42 Lyrica - PO 200 mg BID ROBB Administration
[2018-05-28] MEDS: PREGABALIN 50 MG CAPSULE PO SCH (21:42)
[2018-05-28] MEDS: ATORVASTATIN CA 20 MG TABLET (FP) PO SCH (21:42)
[2018-05-28] MEDS: D5-1/2NS+10 MEQ KCL - 10 MEQ/1,000 ML INFUS.BAG IV SCH (22:53)
[2018-05-29 08:18] LABS: BASO % 0.7 % (0-2.0); EOS % 3.8 % (0-4.5); HEMOGLOBIN 13.3 GM/dl (10.7-15.3); LYMPH % 30.5 % (8-40); MCH 33.4 pg (25.7-33.7); MCHC 35.1 g/dl (32.0-36.0); MEAN CELL VOLUME 95.2 fl (80-96); MEAN PLT VOLUME 9.2 fl (7.5-11.1); MONO % 9.5 % (3.8-10.2); NEUT % 55.5 % (42.8-82.8); PLATELET COUNT 208 K/MM3 (134-434); RBC 3.99 M/mm3 (3.60-5.2); RDW 11.8 % (11.6-15.6); WHITE BLOOD COUNT 8.1 K/mm3 (4.0-10.8)
[2018-05-29 08:33] LABS: ALBUMIN 3.5 g/dl (3.5-5.0); ALK PHOS 75 U/L (32-92); ANION GAP 7 (8-16); BILIRUBIN,TOTAL 0.9 mg/dl (0.2-1.0); BLOOD UREA NITROGEN 13 mg/dl (7-18); CHLORIDE 111 mmol/L (98-107); CO2 25 mmol/L (22-28); CREATININE 0.9 mg/dl (0.6-1.3); GLUCOSE,RANDOM 119 mg/dl (74-106); MAGNESIUM 1.8 mg/dL (1.8-2.4); POTASSIUM 4.7 mmol/L (3.5-5.1); SGOT/AST 28 U/L (10-42); SGPT/ALT 23 U/L (10-40); SODIUM 143 mmol/L (136-145)
[2018-05-29] MEDS ORDERED: PT OWN MED DRAWER 7, Y5N ONE (09:41)
[2018-05-29] MEDS: VITAMIN B COMPLEX W/C COMBO TABLET (FP) PO SCH (09:52)
[2018-05-29] MEDS: MULTIVITAMINS (DAILY MVI) TABLET (FP) PO SCH (09:52)
[2018-05-29] MEDS: PANTOPRAZOLE SODIUM 40 MG VIAL IVPUSH SCH (09:54)
[2018-05-29] MEDS: CEFTRIAXONE 1 GM/50 ML BAG IVPB SCH (09:54)
[2018-05-29] MEDS: ASPIRIN COATED 81 MG TABLET.EC PO SCH (09:54)
[2018-05-29] MEDS: PREGABALIN 50 MG CAPSULE PO SCH ×2 (09:54→21:37)
[2018-05-29] MEDS: PARoxetine HCL 10 MG TABLET (FP) PO SCH (09:59)
[2018-05-29] MEDS ORDERED: PATIENT'S OWN MEDICATION (NON-FORMULARY) (Umeclidinium Bromide [Incruse Ellipta] 62.5 MCG) IH SCH (10:00)
--- NOTE | 2018-05-29 10:39 | PN ---
Progress Note, Physician History of Present Illness: no complaints feels better cx report noted - Current Medication List Current Medications: Active Medications Albuterol Sulfate (Ventolin Hfa Inhaler -) 1 puff IH Q4H PRN PRN Reason: WHEEZING Aspirin (Ecotrin -) 81 mg PO DAILY [facility] Last Admin: 05/29/18 09:54 Dose: 81 mg Atorvastatin Calcium (Lipitor -) 20 mg PO HS [facility] Last Admin: 05/28/18 21:42 Dose: 20 mg Diltiazem HCl (Cardizem Cd -) 120 mg PO DAILY [facility] Last Admin: 05/29/18 09:52 Dose: 120 mg Hydromorphone HCl (Dilaudid Injection -) 1 mg IVPB Q6H PRN PRN Reason: PAIN LEVEL 1 - 3 Potassium Chloride/Dextrose/Sod Cl (D5-1/2ns+10 Meq Kcl -) 10 meq in 1,000 mls @ 75 mls/hr IV ASDIR [facility] Last Admin: 05/28/18 22:53 Dose: 75 mls/hr Ceftriaxone Sodium (Rocephin 1gm Ivpb (Pre-Docked)) 1 gm in 50 mls @ 100 mls/ hr IVPB DAILY [facility] Last Admin: 05/29/18 09:54 Dose: 100 mls/hr Multivitamins (Total B With C -) 1 each PO DAILY [facility] Last Admin: 05/29/18 09:52 Dose: 1 each Multivitamins/Minerals/Vitamin C (Tab-A-Vit -) 1 tab PO DAILY [facility] Last Admin: 05/29/18 09:52 Dose: 1 tab Non-Formulary Medication (Umeclidinium [place] [Incruse Ellipta]) 62.5 mcg IH DAILY [facility] Pantoprazole Sodium (Protonix Iv) 40 mg IVPUSH DAILY [facility] Last Admin: 05/29/18 09:54 Dose: 40 mg Paroxetine HCl (Paxil -) 37.5 mg PO DAILY [facility] Last Admin: 05/29/18 09:59 Dose: Not Given Pregabalin (Lyrica -) 200 mg PO BID [facility] Last Admin: 05/29/18 09:54 Dose: 200 mg - Objective Vital Signs: Vital Signs Temperature 97.8 F 05/29/18 09:48 Pulse Rate 62 05/29/18 09:48 Respiratory Rate 17 05/29/18 09:48 Blood Pressure 141/52 05/29/18 09:48 O2 Sat by Pulse Oximetry (%) 92 L 05/29/18 06:14 Constitutional: Yes: No Distress, Calm Cardiovascular: Yes: Regular Rate and Rhythm Respiratory: Yes: Regular, CTA Bilaterally Gastrointestinal: Yes: Normal Bowel Sounds, Soft Musculoskeletal: Yes: WNL Extremities: Yes: WNL Neurological: Yes: Alert, Oriented Psychiatric: Yes: Alert, Oriented Labs: CBC, BMP 05/29/18 07:47 05/29/18 07:47 Assessment/Plan patient coming to the hospital because of abd pain dirrhoea and repeated uti and failed outpatient treatment for uti uti abd pain dirrhoea dysuria plan cx report noted will continue current abx untill we have identification will speak to urologist on further plan when i have all the cx reports and make a plan of management patient stable
--- NOTE | 2018-05-29 11:27 | PN ---
Progress Note, Physician Chief Complaint: Feels improved no BM since yesterday, afebrile c/o Head ache History of Present Illness: 72 yrs old pleasant f multiple medical Co-morbidities ex smoker h/O COPD, Ca Lung s/p Rt UL resection now in remission, HTN, Multiple sclerosis in remission off treatment, recurrent UTI mostly asymptomatic for past many years F/U , patient was on Suppressive Microbid Therapy lately completed PO Bactrim in April 2018 for Kleibsella UTI, patient has been having off and on watery diarrhea with epigastric pain and nausea for past 10 wks, U Culture is growing Fermenters E Colli, although documented PCN allergy but tolerating IV Ceftriaxone - Current Medication List Current Medications: Active Medications Albuterol Sulfate (Ventolin Hfa Inhaler -) 1 puff IH Q4H PRN PRN Reason: WHEEZING Aspirin (Ecotrin -) 81 mg PO DAILY [facility] Last Admin: 05/29/18 09:54 Dose: 81 mg Atorvastatin Calcium (Lipitor -) 20 mg PO HS [facility] Last Admin: 05/28/18 21:42 Dose: 20 mg Diltiazem HCl (Cardizem Cd -) 120 mg PO DAILY [facility] Last Admin: 05/29/18 09:52 Dose: 120 mg Hydromorphone HCl (Dilaudid Injection -) 1 mg IVPB Q6H PRN PRN Reason: PAIN LEVEL 1 - 3 Potassium Chloride/Dextrose/Sod Cl (D5-1/2ns+10 Meq Kcl -) 10 meq in 1,000 mls @ 75 mls/hr IV ASDIR [facility] Last Admin: 05/28/18 22:53 Dose: 75 mls/hr Ceftriaxone Sodium (Rocephin 1gm Ivpb (Pre-Docked)) 1 gm in 50 mls @ 100 mls/ hr IVPB DAILY [facility] Last Admin: 05/29/18 09:54 Dose: 100 mls/hr Multivitamins (Total B With C -) 1 each PO DAILY [facility] Last Admin: 05/29/18 09:52 Dose: 1 each Multivitamins/Minerals/Vitamin C (Tab-A-Vit -) 1 tab PO DAILY [facility] Last Admin: 05/29/18 09:52 Dose: 1 tab Non-Formulary Medication (Umeclidinium [place] [Incruse Ellipta]) 62.5 mcg IH DAILY [facility] Pantoprazole Sodium (Protonix Iv) 40 mg IVPUSH DAILY [facility] Last Admin: 05/29/18 09:54 Dose: 40 mg Paroxetine HCl (Paxil -) 37.5 mg PO DAILY [facility] Last Admin: 05/29/18 09:59 Dose: Not Given Pregabalin (Lyrica -) 200 mg PO BID [facility] Last Admin: 05/29/18 09:54 Dose: 200 mg - Objective Vital Signs: Vital Signs Temperature 97.8 F 05/29/18 09:48 Pulse Rate 62 05/29/18 09:48 Respiratory Rate 17 05/29/18 09:48 Blood Pressure 141/52 05/29/18 09:48 O2 Sat by Pulse Oximetry (%) 92 L 05/29/18 06:14 Constitutional: No distress HEENT: Conjunctiva Clear, EOM Intact, Atraumatic, Normocephalic Neck: Supple, Trachea Midline. No: Decreased ROM, Lymphadenopathy Cardiovascular: Regular Rate and Rhythm, S1, S2. No: JVD, Gallop, Murmur Respiratory: CTA Bilaterally Gastrointestinal: Normal Bowel Sounds, Soft,no Tenderness, EXTEWRMITIES: No Edema c/o Left calf tenderness , Pulses :Left Doralis Pedis: 1+ , Right Dorsalis Pedis: 1+ Neurological: Alert, Oriented. No: Aphasia Motor Strength: WNL, LUE, LLE, RUE , RLE Psychiatric: Yes: Alert, Oriented. No: Agitated, Suicidal Ideation Labs: CBC, BMP 05/29/18 07:47 05/29/18 07:47 Problem List - Problems (1) Abdominal pain Assessment/Plan: Patient present with abd pain diffuse in the setting of UTI and Diarrhea,will start PO as tolerates, received IV Ceftriaxone as per sensitivity will f/u Stool w/u and U culture Code(s): R10.9 - UNSPECIFIED ABDOMINAL PAIN (2) Diarrhea Assessment/Plan: Recurrent diarrhea for past 10days will evaluate for infectious/ non infectios diarrhea last Ct shows Duodenitis F/U Stool H Pylori, Stool culture, Stool WBC and stool ova and parasites, GI consult as per w/u. Code(s): R19.7 - DIARRHEA, UNSPECIFIED (3) UTI (urinary tract infection) Assessment/Plan: As per urine Collected on Friday Grew E Colli resistant to Cipro patient is unable to tolerate PO due to nausea, abd pain and diarrhea will start on IV Ceftriaxone F/U Urine culture result, switch to Po once Gi symptoms resolves. Code(s): N39.0 - URINARY TRACT INFECTION, SITE NOT SPECIFIED Qualifiers: Urinary tract infection type: site unspecified Hematuria presence: without hematuria Qualified Code(s): N39.0 - Urinary tract infection, site not specified (4) Dehydration Assessment/Plan: Due to adirrhea IV Hydration F/U BMP Code(s): E86.0 - DEHYDRATION (5) Hypomagnesemia Assessment/Plan: Rpt Mag 1.8 due will start PO Mag Code(s): E83.42 - HYPOMAGNESEMIA (6) HTN (hypertension) Assessment/Plan: Well controlled cont all home meds Code(s): I10 - ESSENTIAL (PRIMARY) HYPERTENSION (7) COPD (chronic obstructive pulmonary disease) Assessment/Plan: Ex smoker s/p Rt Partial lung resection Ca Lung at present well controlled on current regimen, cont same. Code(s): J44.9 - CHRONIC OBSTRUCTIVE PULMONARY DISEASE, UNSPECIFIED (8) Carcinoma of lung Assessment/Plan: S/p resection Rt UL now in remission. Code(s): C34.90 - MALIGNANT NEOPLASM OF UNSP PART OF UNSP BRONCHUS OR LUNG Qualifiers: Laterality: right Qualified Code(s): C34.91 - Malignant neoplasm of unspecified part of right bronchus or lung (9) Multiple sclerosis Assessment/Plan: In remission no focal symptoms off meds F/U with Neurology as out patient. Code(s): G35 - MULTIPLE SCLEROSIS (10) Hypercholesterolemia Assessment/Plan: Cont Atorvastatin Code(s): E78.00 - PURE HYPERCHOLESTEROLEMIA, UNSPECIFIED
[2018-05-29] MEDS ORDERED: ACETAMINOPHEN 325 MG TABLET (FP) PO PRN (11:30)
[2018-05-29] MEDS: MAGNESIUM OXIDE 400 MG TABLET (FP) PO SCH ×2 (12:32→21:37)
[2018-05-29] MEDS: ENOXAPARIN NA (PORCINE) 40 MG/0.4 ML DISP.SYRIN SQ SCH (12:33)
[2018-05-29] MEDS: D5-1/2NS+10 MEQ KCL - 10 MEQ/1,000 ML INFUS.BAG IV SCH (17:50)
[2018-05-29] MEDS: ATORVASTATIN CA 20 MG TABLET (FP) PO SCH (21:37)
[2018-05-30] MEDS: PANTOPRAZOLE SODIUM 40 MG VIAL IVPUSH SCH (09:00)
[2018-05-30 09:13] LABS: BASO % 0.7 % (0-2.0); EOS % 4.3 % (0-4.5); HEMATOCRIT 41.4 % (32.4-45.2); HEMOGLOBIN 14.6 GM/dl (10.7-15.3); LYMPH % 32.6 % (8-40); MCHC 35.3 g/dl (32.0-36.0); MEAN CELL VOLUME 96.2 fl (80-96); MEAN PLT VOLUME 10.1 fl (7.5-11.1); MONO % 6.7 % (3.8-10.2); NEUT % 55.7 % (42.8-82.8); PLATELET COUNT 226 K/MM3 (134-434); RDW 12.1 % (11.6-15.6); WHITE BLOOD COUNT 8.9 K/mm3 (4.0-10.8)
[2018-05-30 09:17] LABS: ANION GAP 6 (8-16); BLOOD UREA NITROGEN 14 mg/dl (7-18); CALCIUM 9.1 mg/dl (8.4-10.2); CHLORIDE 109 mmol/L (98-107); CO2 26 mmol/L (22-28); CREATININE 0.9 mg/dl (0.6-1.3); GLUCOSE,RANDOM 108 mg/dl (74-106); POTASSIUM 4.5 mmol/L (3.5-5.1); SODIUM 141 mmol/L (136-145)
[2018-05-30] MEDS: ASPIRIN COATED 81 MG TABLET.EC PO SCH (09:48)
[2018-05-30] MEDS: MAGNESIUM OXIDE 400 MG TABLET (FP) PO SCH (09:50)
[2018-05-30] MEDS: PREGABALIN 50 MG CAPSULE PO SCH (09:50)
[2018-05-30] MEDS: PARoxetine HCL 10 MG TABLET (FP) PO SCH (09:50)
[2018-05-30] MEDS: MULTIVITAMINS (DAILY MVI) TABLET (FP) PO SCH (09:51)
[2018-05-30] MEDS: VITAMIN B COMPLEX W/C COMBO TABLET (FP) PO SCH (09:54)
[2018-05-30] MEDS: CEFTRIAXONE 1 GM/50 ML BAG IVPB SCH (09:55)
[2018-05-30] MEDS: ENOXAPARIN NA (PORCINE) 40 MG/0.4 ML DISP.SYRIN SQ SCH (10:00)
--- NOTE | 2018-05-30 10:13 | EKG ---
Test Reason : Blood Pressure : / mmHG Vent. Rate : 078 BPM Atrial Rate : 078 BPM P-R Int : 120 ms QRS Dur : 080 ms QT Int : 400 ms P-R-T Axes : 041 057 042 degrees QTc Int : 456 ms POOR DATA QUALITY, INTERPRETATION MAY BE ADVERSELY AFFECTED NORMAL SINUS RHYTHM NORMAL ECG WHEN COMPARED WITH ECG OF 09-OCT-2013 06:27, NO SIGNIFICANT CHANGE WAS FOUND Confirmed by ESTEBAN RIVAS, ESME ([id number]) on 05/30/2018 10:12:58 AM Referred By: LISANDRA Confirmed By:ESME ORELLANA MD
[2018-05-30] MEDS ORDERED: PT OWN MED DRAWER 7, Y5N ONE (11:12)
[2018-05-30 14:55] VITALS: BP 144/75; PULSE 58; TEMP 97.8
--- NOTE | 2018-05-30 16:44 | DS ---
Physical Examination Vital Signs: Vital Signs Temperature 97.8 F 05/30/18 14:54 Pulse Rate 58 L 05/30/18 14:54 Respiratory Rate 18 05/30/18 14:54 Blood Pressure 144/75 05/30/18 14:54 O2 Sat by Pulse Oximetry (%) 95 05/30/18 14:54 Constitutional: No distress HEENT: Conjunctiva Clear, EOM Intact, Atraumatic, Normocephalic Neck: Supple, Trachea Midline. No: Decreased ROM, Lymphadenopathy Cardiovascular: Regular Rate and Rhythm, S1, S2. No: JVD, Gallop, Murmur Respiratory: CTA Bilaterally Gastrointestinal: Normal Bowel Sounds, Soft,no Tenderness, EXTEWRMITIES: No Edema c/o Left calf tenderness , Pulses :Left Doralis Pedis: 1+ , Right Dorsalis Pedis: 1+ Neurological: Alert, Oriented. No: Aphasia Motor Strength: WNL, LUE, LLE, RUE , RLE Psychiatric: Yes: Alert, Oriented. No: Agitated, Suicidal Ideation Labs: CBC, BMP 05/30/18 07:12 05/30/18 07:12 Discharge Summary Reason For Visit: UTI Current Active Problems COPD (chronic obstructive pulmonary disease) (Acute) Carcinoma of lung (Acute) Dehydration (Acute) HTN (hypertension) (Acute) Hypercholesterolemia (Acute) Hypomagnesemia (Acute) Multiple sclerosis (Acute) UTI (urinary tract infection) (Acute) Hospital Course: 72 yrs old pleasant f multiple medical Co-morbidities ex smoker h/O COPD, Ca Lung s/p Rt UL resection now in remission, HTN, Multiple sclerosis in remission off treatment, recurrent UTI mostly asymptomatic for past many years F/U , patient was on Suppressive Microbid Therapy lately completed PO Bactrim in April 2018 for Kleibsella UTI, patient has been having off and on watery diarrhea with epigastric pain and nausea for past 10 wks, U Culture is growing Fermenters E Colli, although documented PCN allergy but tolerating IV Ceftriaxone, U Culture Grew E Colli resistent to Bactrim and Cipro, Diarrhea resolved Condition: Stable - Instructions Referrals: Cedric Calero MD [Primary Care Provider] - 1 Week Carlos Alberto Patel MD [Staff Physician] - 1 Week Disposition: HOME - Home Medications Comprehensive Discharge Medication List: Ambulatory Orders Calcium [Natural Calcium] 600 mg PO BID #0 tablet 10/12/13 Paroxetine HCl [Paxil -] 37.5 mg PO DAILY 06/20/14 Multivitamins [Multivit ([facility] Formulary)] 1 tab PO DAILY 11/24/15 Pregabalin [Lyrica -] 200 mg PO BID 11/24/15 Aspirin Coated [Ecotrin -] 81 mg PO DAILY #0 11/28/15 Diclofenac Sodium [Voltaren-Xr] 100 mg PO DAILY #0 04/09/16 Albuterol Sulfate Inhaler - [Ventolin HFA Inhaler -] 1 - 2 inh PO Q4H PRN Diltiazem HCl [Cartia Xt] 120 mg PO DAILY 05/28/18 Umeclidinium [place] [Incruse Ellipta] 62.5 mcg IH DAILY 05/28/18 Vitamin B Complex 1 each PO DAILY 05/28/18 Atorvastatin Ca [Lipitor] 20 mg PO HS tablet 05/30/18 Cefuroxime Axetil [Ceftin -] 250 mg PO BID 7 Days #14 tablet 05/30/18 Ranitidine [Zantac -] 150 mg PO DAILY #30 tablet 05/30/18
[2018-05-30] MEDS ORDERED: CEFUROXIME AXETIL 250 MG TABLET PO SCH (22:00)
== END 2018-05-30 17:59 | disposition home or self-care (01) | DRG 690 ==
LOC: FER 09:30 → FM/S 15:40
PROVIDERS: ADMIT Internal Medicine; ATTEND Internal Medicine
DX: N39.0 Urinary tract infection, site not specified (principal); J44.9 Chronic obstructive pulmonary disease, unspecified; I10 Essential (primary) hypertension; G35 Multiple sclerosis; F41.8 Other specified anxiety disorders; M54.5 Low back pain; E78.5 Hyperlipidemia, unspecified; R10.9 Unspecified abdominal pain; R19.7 Diarrhea, unspecified; E83.42 Hypomagnesemia; B96.20 Unspecified Escherichia coli [E. coli] as the cause of diseases classified elsewhere; E86.0 Dehydration; Z87.891 Personal history of nicotine dependence; Z85.118 Personal history of other malignant neoplasm of bronchus and lung
CPT/HCPCS: 36415; 80048; 80053; 81003; 81015; 82550; 82705; 83690; 83735; 84443; 84484; 85025; 87086; 87177; 87186; 87209; 87338; 93005; 93970-TC; 99285-25; J7030

== ENCOUNTER 2019-05-22 11:32 | Inpatient (IN) | payer OTHER, BC ==
[2019-05-22 11:41] VITALS: BMI 22.8
[2019-05-22] MEDS ORDERED: ONDANSETRON 4 MG/2 ML VIAL IVPB ONE (13:30)
[2019-05-22] MEDS ORDERED: SODIUM CHLORIDE 1,000 ML IV ONE (13:30)
[2019-05-22] MEDS ORDERED: ONDANSETRON 4 MG/2 ML VIAL ONE (13:35)
[2019-05-22 16:00] LABS: ALBUMIN 3.9 g/dl (3.4-5.0); BILIRUBIN,TOTAL 1.2 mg/dL (0.2-1); CALCIUM 9.4 mg/dL (8.5-10.1); CREATININE 1.1 mg/dL (0.55-1.3); MAGNESIUM 1.4 mg/dL (1.8-2.4); POTASSIUM 3.9 mmol/L (3.5-5.1); TOT PROT 7.4 g/dl (6.4-8.2)
[2019-05-22 16:07] LABS: BASO % 0.7 % (0-2.0); EOS % 0.4 % (0-4.5); HEMATOCRIT 40.2 % (32.4-45.2); HEMOGLOBIN 13.9 GM/dL (10.7-15.3); LYMPH % 18.1 % (8-40); MCH 32.9 pg (25.7-33.7); MCHC 34.7 g/dl (32.0-36.0); MEAN PLT VOLUME 9.7 fl (7.5-11.1); MONO % 9.4 % (3.8-10.2); NEUT % 71.4 % (42.8-82.8); PLATELET COUNT 226 K/MM3 (134-434); RBC 4.24 M/mm3 (3.60-5.2); RDW 12.3 % (11.6-15.6); WHITE BLOOD COUNT 11.7 K/mm3 (4.0-10.0)
[2019-05-22 16:28] LABS: EPI CELLS 2.8 /HPF (0-5/HPF); HYALINE CASTS 3 /lpf (0-8); PH,URINE 5.5 (5.0-8.0); URINE APPEARANCE CLOUDY; URINE BACTERIA 132.1 /hpf (NEGATIVE); URINE BILIRUBIN NEGATIVE (NEGATIVE); URINE COLOR YELLOW; URINE GLUCOSE (UA) NEGATIVE (NEGATIVE); URINE KETONE 2+ (NEGATIVE); URINE LEUK ESTERASE 2+ (NEGATIVE); URINE NITRITE NEGATIVE (NEGATIVE); URINE PROTEIN TRACE (NEGATIVE); URINE RBC 5 /hpf (0-4); URINE WBC 192 /hpf (0-5)
--- NOTE | 2019-05-22 17:32 | PDOC ---
Documentation entered by Jeannette Garcia SCRIBE, acting as scribe for Matthew Lai MD. Matthew Lai MD: This documentation has been prepared by the Radha rosales Brenda, SCRIBE, under my direction and personally reviewed by me in its entirety. I confirm that the documentation accurately reflects all work, treatment, procedures, and medical decision making performed by me. History of Present Illness - General Chief Complaint: Diarrhea Stated Complaint: WEAKNESS/VOMITING/DEHYDRATED Time Seen by Provider: 05/22/19 12:38 History Source: Patient Exam Limitations: No Limitations - History of Present Illness Travel History: Yes Initial Comments: 05/22/19 14:19 The patient is a year old female, with a significant PMH of pancreatitis, multiple sclerosis, COPD and lung cancer with RUL resection 11 years, ago who presents to the emergency department with 4 days of perfused, watery gold diarrhea approximately 4 times a day, waking her up during sleep. The patient reports feeling a general stomach ache on Friday (05/18/19). She then reports that her symptoms when defecating are burning in the abdomen and post diaphoresis on the left side only, she also notes a strong odor. The patient reports having lost 10 pounds since Friday (05/19/19), with decreased water intake and PO intake, due to nausea and non bloody vomiting. The patient reports her vomiting to be yellowish-green. The patient also notes increased urinary frequency The patient denies chest pain, shortness of breath, headache and dizziness. Denies fever and constipation. Denies dysuria, urgency and hematuria. Allergies: NKA Past surgical history: Gallbladder removal in 1984 Social history: Former smoker. PCP: Dr. Christiano Steele Past History - Past Medical History Allergies/Adverse Reactions: Allergies Allergy/AdvReac Type Severity Reaction Status Date / Time Penicillins Allergy Intermediate Hives Verified 05/22/19 11:36 Home Medications: Ambulatory Orders Calcium [Natural Calcium] 600 mg PO BID #0 tablet 10/12/13 Paroxetine HCl [Paxil -] 37.5 mg PO DAILY 06/20/14 Multivitamins [Multivit ([facility] Formulary)] 1 tab PO DAILY 11/24/15 Pregabalin [Lyrica -] 200 mg PO BID 11/24/15 Aspirin Coated [Ecotrin -] 81 mg PO DAILY #0 11/28/15 Diclofenac Sodium [Voltaren-Xr] 100 mg PO DAILY #0 04/09/16 Albuterol Sulfate Inhaler - [Ventolin HFA Inhaler -] 1 - 2 inh PO Q4H PRN Diltiazem HCl [Cartia Xt] 120 mg PO DAILY 05/28/18 Umeclidinium [place] [Incruse Ellipta] 62.5 mcg IH DAILY 05/28/18 Vitamin B Complex 1 each PO DAILY 05/28/18 Atorvastatin Ca [Lipitor] 20 mg PO HS tablet 05/30/18 Cefuroxime Axetil [Ceftin -] 250 mg PO BID 7 Days #14 tablet 05/30/18 Ranitidine [Zantac -] 150 mg PO DAILY #30 tablet 05/30/18 Anemia: No Asthma: No Cancer: Yes (lung 2006) Cardiac Disorders: Yes (ATRIAL FLUTTER) CVA: No COPD: Yes (DX 2009) CHF: No Dementia: No Diabetes: No GI Disorders: Yes (PANCREATITIS-1994) Disorders: Yes (HX OF FREQUENT UTI'S-LAST 03/2016) HTN: No Hypercholesterolemia: Yes Liver Disease: No Psychiatric Problems: Yes (DEPRESSION) Seizures: No Thyroid Disease: No - Surgical History Abdominal Surgery: Yes Appendectomy: Yes () Cardiac Surgery: No Cholecystectomy: Yes (OPEN-) Lung Surgery: Yes (RIGHT UPPER LOBECTOMY 2007) Neurologic Surgery: Yes (LAMINECTOMY-) Orthopedic Surgery: Yes (LEFT FEMUR-07/2014-[facility]) - Family Disease History Family Disease History: Heart Disease: Father, CA: Sister - Reproductive History Therapeutic (s) & number: No - Suicide/Smoking/Psychosocial Hx Smoking Status: No Smoking History: Never smoked Have you smoked in the past 12 months: No Number of Cigarettes Smoked Daily: 20 If you are a former smoker, when did you quit?: 2006 Information on smoking cessation initiated: No 'Breaking Loose' booklet given: 10/09/13 Hx Alcohol Use: No Drug/Substance Use Hx: No Substance Use Type: None Hx Substance Use Treatment: No Abd/GI Specific PMHX - Complaint Specific PMHX Pancreatitis: Yes Review of Systems - Review of Systems Able to Perform ROS?: Yes Comments:: 05/22/19 14:19 Constitutional: + Diaphoresis. +Weight loss. Pt denies Fever, Chills. HEENT: denies vision changes, sore throat Respiratory: Denies cough, sob, hemoptysis Cardiac: denies chest pain, palpitations, light headedness, leg swelling Abd/GI: +Abdominal pain. +nausea + vomiting + diarrhea. Denies blood per rectum , melena. : +Frequency. Denies dysuria, discharge Musculskelatal - denies back pain, joint swelling Skin - denies bruising, erythema, rash Neurological: denies headache, numbness, focal weakness, tingling, ataxia, weakness Hematologic: denies anemia, easy bruising, easy bleeding *Physical Exam - Vital Signs Last Vital Signs Temp Pulse Resp BP Pulse Ox 97.6 F 84 18 133/65 96 05/22/19 11:37 05/22/19 11:37 05/22/19 11:37 05/22/19 11:37 05/22/19 11:37 - Physical Exam Comments: 05/22/19 14:03 GENERAL: The patient is awake, alert, and fully oriented, Nontoxic - in no acute distress. HEAD: Normocephalic, atraumatic. EYES: extraocular movements intact, sclera anicteric, conjunctiva clear. ENT: Normal voice, Moist mucous membranes. NECK: Normal range of motion, supple LUNGS: Breath sounds equal, clear to auscultation bilaterally. No wheezes, no rhonchi, no rales. HEART: Regular rate and rhythm, normal S1 and S2 without murmur, rub or gallop. ABDOMEN: Soft, mild diffuse tenderness EXTREMITIES: Normal range of motion, no edema. NEUROLOGICAL: No facial assymetry, Normal speech, PSYCH: Normal mood, normal affect. SKIN: Warm, Dry, normal turgor, Heart Score/ECG Review - ECG Impressions Comment:: 05/22/19 17:35 Twelve-lead EKG was performed and reviewed by me. rate of 72 normal sinus rhthm w pacs no st changes sugestive of acute ischemia ED Treatment Course - LABORATORY CBC & Chemistry Diagram: 05/22/19 15:13 05/23/19 12:06 Medical Decision Making - Medical Decision Making 05/22/19 13:24 73y F hx of lung ca (sp lobectomy), copd, MS, presents with complaint of nausea/ vomiting, profuse watery diarrhea 4-6x daily for several days. The diarrhea is foul smelling, yellowish with blood/melena. Last episode of vomiting was friday and was yellowish without blood/coffee grounds. Pt denies any fever/ chills, cp, sob, back pain, numbnes/tingling/weakness. No recent travel or known sick contacts. mild diffuse tendernes to abd ddx - gastroenteritis, enteritis, no risk factors for c-diff pt with frequency - will ro uti will ck labs, including LA will reasess, consider furthe rimaging *DC/Admit/Observation/Transfer Diagnosis at time of Disposition: UTI (lower urinary tract infection), Diarrhea - Discharge Dispostion Condition at time of disposition: Stable - Referrals - Patient Instructions - Post Discharge Activity
--- NOTE | 2019-05-22 17:40 | PDOC ---
*Physical Exam - Vital Signs Last Vital Signs Temp Pulse Resp BP Pulse Ox 97.6 F 84 18 133/65 96 05/22/19 11:37 05/22/19 11:37 05/22/19 11:37 05/22/19 11:37 05/22/19 11:37 ED Treatment Course - LABORATORY CBC & Chemistry Diagram: 05/22/19 15:13 05/22/19 15:13 - ADDITIONAL ORDERS Additional order review: Laboratory Results 05/22/19 05/22/19 05/22/19 16:19 15:13 15:13 Sodium Potassium Chloride Carbon Dioxide Anion Gap BUN Creatinine Est GFR (CKD-EPI)AfAm Est GFR (CKD-EPI)NonAf Random Glucose Lactic Acid 1.3 Calcium Magnesium Total Bilirubin AST ALT Alkaline Phosphatase Total Protein Albumin Lipase 134 Urine Color Yellow Urine Appearance Cloudy Urine pH 5.5 Ur Specific [place] 1.021 Urine Protein Trace Urine Glucose (UA) Negative Urine Ketones 2+ H Urine Blood Trace Urine Nitrite Negative Urine Bilirubin Negative Urine Urobilinogen 1.0 Ur Leukocyte Esterase 2+ H Urine WBC (Auto) 192 Urine RBC (Auto) 5 Urine Casts (Auto) 3 U Epithel Cells (Auto) 2.8 Urine Bacteria (Auto) 132.1 05/22/19 15:13 Sodium 137 Potassium 3.9 Chloride 104 Carbon Dioxide 23 Anion Gap 10 BUN 28.0 H Creatinine 1.1 Est GFR (CKD-EPI)AfAm 57.68 Est GFR (CKD-EPI)NonAf 49.77 Random Glucose 91 Lactic Acid Calcium 9.4 Magnesium 1.4 L Total Bilirubin 1.2 H AST 28 ALT 26 Alkaline Phosphatase 108 Total Protein 7.4 Albumin 3.9 Lipase Urine Color Urine Appearance Urine pH Ur Specific [place] Urine Protein Urine Glucose (UA) Urine Ketones Urine Blood Urine Nitrite Urine Bilirubin Urine Urobilinogen Ur Leukocyte Esterase Urine WBC (Auto) Urine RBC (Auto) Urine Casts (Auto) U Epithel Cells (Auto) Urine Bacteria (Auto) 05/22/19 15:13 RBC 4.24 MCV 95.0 MCHC 34.7 RDW 12.3 MPV 9.7 Neutrophils % 71.4 D Lymphocytes % 18.1 D Monocytes % 9.4 Eosinophils % 0.4 Basophils % 0.7 - Medications Given in the ED: ED Medications Discontinued Medications Generic Name Dose Route Start Last Admin Trade Name Freq PRN Reason Stop Dose Admin Sodium Chloride 1,000 mls @ 1,000 mls/hr 05/22/19 13:30 05/22/19 15:10 Normal Saline - IV 05/22/19 14:29 1,000 mls/hr .Q1H ONE Administration Ondansetron HCl 4 mg 05/22/19 13:30 05/22/19 16:04 Zofran Injection IVPB 05/22/19 13:31 4 mg ONCE ONE Administration Medical Decision Making - Medical Decision Making 05/22/19 17:39 73 yo F presenting with 1 episode of vomiting and 1 episode of diarrhea She was noted to have a pulsatile abdominal mass Pending CT 05/22/19 17:40 Ua equivical/positive Will give Bactrim upon discharge 05/22/19 18:38 05/22/19 19:[address] demonstrates ileitis and enteritis Will plan to admit case reviewed with Dr. Stout She requests consult to GI (pt has seen Dr Patel in the past) Pt has recurrent UTIs (was admitted to [facility] for similar presentation, found to have a UTI, told that she can not take some antibiotic) 05/22/19 20:05 Chart review demonstrates that pt was admitted for diarrhea, had UTI for which she was treated with Ceftriaxone (Resistant to Bactrim, Cipro) Will give Ceftriaxone Will give IV Fluids Consult placed to Dr Patel *DC/Admit/Observation/Transfer Diagnosis at time of Disposition: UTI (lower urinary tract infection) Diarrhea Qualifiers: Diarrhea type: unspecified type Qualified Code(s): R19.7 - Diarrhea, unspecified - Discharge Dispostion Condition at time of disposition: Stable Decision to Admit order: Yes - Referrals Referrals: Cedric Calero MD [Primary Care Provider] - - Patient Instructions - Post Discharge Activity
[2019-05-22] MEDS ORDERED: SODIUM CHLORIDE 1,000 ML IV STA (19:22)
[2019-05-22] MEDS ORDERED: CEFTRIAXONE 1 GM in DEXTROSE 5%-WATER - 50 ML IVPB ONE (20:12)
[2019-05-22] MEDS ORDERED: CEFTRIAXONE 1 GM/50 ML BAG ONE (20:42)
--- NOTE | 2019-05-23 08:39 | EKG ---
Test Reason : Blood Pressure : / mmHG Vent. Rate : 072 BPM Atrial Rate : 071 BPM P-R Int : 128 ms QRS Dur : 078 ms QT Int : 424 ms P-R-T Axes : 008 071 036 degrees QTc Int : 464 ms POOR DATA QUALITY, INTERPRETATION MAY BE ADVERSELY AFFECTED NORMAL SINUS RHYTHM WITH REPOLARIZATION ABNORMALITY Confirmed by ESTEBAN RIVAS, ESME ([id number]) on 05/23/2019 8:38:56 AM Referred By: Confirmed By:ESME ORELLANA MD
[2019-05-23] MEDS ORDERED: ALBUTEROL SO4 8 GM HFA INHALER IH PRN (11:39)
[2019-05-23] MEDS ORDERED: ONDANSETRON 4 MG/2 ML VIAL IVPB PRN (11:40)
[2019-05-23] MEDS ORDERED: ALBUTEROL SO4 2.5/IPRATROPIUM 0.5 INH SOL 3 ML VIAL.NEB. NEB PRN (11:42)
--- NOTE | 2019-05-23 11:46 | HP ---
Admitting History and Physical - Primary Care Physician PCP: Cedric Calero - Admission Chief Complaint: Nausea with Diarrhea History of Present Illness: 73yrs old pleasant f multiple medical Co-morbidities ex smoker h/O COPD, Ca Lung s/p Rt UL resection now in remission, HTN, Multiple sclerosis in remission off treatment, recurrent UTI mostly asymptomatic for past many years F/U , patient was on Suppressive Microbid Therapy present with sever nausea, with Diarrhea since last friday crampy watery no blood or mucous , patient also netted some vomiting followed by dry heaves nad epigastric pain, no fever chills ,nausea, no fever chills,chest pain or palpiation - Past Medical History 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 Cardiovascular: Yes: HTN, Hyperlipdemia Pulmonary: Yes: COPD Gastrointestinal: Yes: Pancreatitis Hepatobiliary: Yes: Other Heme/Onc: Yes: Other Psych: Yes: Anxiety, Depression Musculoskeletal: Yes: Chronic low back pain - Smoking History Smoking history: Former smoker Have you smoked in the past 12 months: No Aproximately how many cigarettes per day: 20 If you are a former smoker, when did you quit?: 2006 - Alcohol/Substance Use Hx Alcohol Use: No - Social History ADL: Independent History of Recent Travel: No Home Medications - Allergies Allergies/Adverse Reactions: Allergies Allergy/AdvReac Type Severity Reaction Status Date / Time Penicillins Allergy Intermediate Hives Verified 05/22/19 11:36 - Home Medications Home Medications: Ambulatory Orders Calcium [Natural Calcium] 600 mg PO BID #0 tablet 10/12/13 Paroxetine HCl [Paxil -] 37.5 mg PO DAILY 06/20/14 Multivitamins [Multivit ([facility] Formulary)] 1 tab PO DAILY 11/24/15 Pregabalin [Lyrica -] 200 mg PO BID 11/24/15 Aspirin Coated [Ecotrin -] 81 mg PO DAILY #0 11/28/15 Diclofenac Sodium [Voltaren-Xr] 100 mg PO DAILY #0 04/09/16 Albuterol Sulfate Inhaler - [Ventolin HFA Inhaler -] 1 - 2 inh PO Q4H PRN Diltiazem HCl [Cartia Xt] 120 mg PO DAILY 05/28/18 Umeclidinium [place] [Incruse Ellipta] 62.5 mcg IH DAILY 07/19/18 Vitamin B Complex 1 each PO DAILY 05/28/18 Atorvastatin Ca [Lipitor] 20 mg PO HS tablet 05/30/18 Cefuroxime Axetil [Ceftin -] 250 mg PO BID 7 Days #14 tablet 05/30/18 Ranitidine [Zantac -] 150 mg PO DAILY #30 tablet 05/30/18 Family Disease History - Family Disease History Family History: Unremarkable Review of Systems - Review of Systems Constitutional: reports: Diaphoresis, Fever Eyes: denies: Blind Spots, Blurred Vision HENT: denies: Difficult Swallowing, Ear Discharge Cardiovascular: denies: Chest Pain Respiratory: denies: Cough, Exercise Intolerance, Hemoptysis Gastrointestinal: reports: Abdominal Pain, Bloating, Diarrhea, Vomiting Musculoskeletal: denies: Back Pain, Crepitus, Decreased ROM, Extremity Pain Integumentary: denies: Blister, Bruising, Change in Color, Eczema, Erythema Neurological: denies: Change in LOC, Change in Speech, Confusion, Incoordination , Syncope, Tremors Hematology/Lymphatic: denies: Easily Bruised, Excessive Bleeding Physical Examination Vital Signs: Vital Signs Temperature 98.6 F 05/23/19 00:00 Pulse Rate 65 05/23/19 00:00 Respiratory Rate 20 05/23/19 00:00 Blood Pressure 150/60 05/23/19 00:00 O2 Sat by Pulse Oximetry (%) 96 05/23/19 00:00 Constitutional: Yes: No Distress, Calm Eyes: Yes: Conjunctiva Clear, EOM Intact HENT: Yes: Atraumatic, Normocephalic Neck: Yes: Supple, Trachea Midline Cardiovascular: Yes: Regular Rate and Rhythm, S1 Respiratory: Yes: Regular, CTA Bilaterally Gastrointestinal: Yes: Normal Bowel Sounds, Soft. No: Tenderness, Epigastrium ...Rectal Exam: Yes: Deferred, Erythema, Guaiac Negative Renal/: No: Anuria, Bladder Distention Musculoskeletal: No: Back Pain, Joint Stiffness Extremities: No: Amputation Edema: No Peripheral Pulses: Left Doralis Pedis: 1+, Right Dorsalis Pedis: 1+ Neurological: Yes: Alert, Oriented ...Motor Strength: LUE, LLE, RUE, RLE Labs: CBC, BMP 05/22/19 15:13 05/22/19 15:13 Imaging - Results Cat Scan: Report Reviewed (Abd ? Jejunal dilatation) EKG: Report Reviewed (NSr no acute St T chnages) Problem List - Problems (1) Diarrhea Assessment/Plan: improving Iv hydration, consider C diff and WBC if recurrence, IV Hydration F/u Pending w/u Code(s): R19.7 - DIARRHEA, UNSPECIFIED Qualifiers: Diarrhea type: unspecified type Qualified Code(s): R19.7 - Diarrhea, unspecified (2) UTI (lower urinary tract infection) Assessment/Plan: F/U Culture IV Ceftrixone Code(s): N39.0 - URINARY TRACT INFECTION, SITE NOT SPECIFIED (3) Hypomagnesemia Assessment/Plan: Repleted Code(s): E83.42 - HYPOMAGNESEMIA (4) COPD (chronic obstructive pulmonary disease) Assessment/Plan: sr=table cont current management Code(s): J44.9 - CHRONIC OBSTRUCTIVE PULMONARY DISEASE, UNSPECIFIED (5) HTN (hypertension) Assessment/Plan: Well controlled cont home meds Code(s): I10 - ESSENTIAL (PRIMARY) HYPERTENSION (6) Carcinoma of lung Assessment/Plan: S/P resection Code(s): C34.90 - MALIGNANT NEOPLASM OF UNSP PART OF UNSP BRONCHUS OR LUNG Qualifiers: Laterality: right Qualified Code(s): C34.91 - Malignant neoplasm of unspecified part of right bronchus or lung (7) Multiple sclerosis Assessment/Plan: in remission not on any treatment Code(s): G35 - MULTIPLE SCLEROSIS (8) Hypercholesterolemia Assessment/Plan: on Sttain Code(s): E78.00 - PURE HYPERCHOLESTEROLEMIA, UNSPECIFIED (9) Nausea Assessment/Plan: NPO except meds IV PPI IV zofran IV hydration. Code(s): R11.0 - NAUSEA
[2019-05-23] MEDS ORDERED: MAGNESIUM SULF 50% (8.12 MEQ/2 ML-1 GM VIAL) IVPB ONE (12:23)
[2019-05-23 12:54] LABS: BLOOD UREA NITROGEN 20.7 mg/dL (7-18); CALCIUM 8.5 mg/dL (8.5-10.1); CREATININE 0.8 mg/dL (0.55-1.3); MAGNESIUM 1.3 mg/dL (1.8-2.4); POTASSIUM 3.8 mmol/L (3.5-5.1)
[2019-05-23] MEDS: PANTOPRAZOLE SODIUM 40 MG VIAL IVPUSH SCH (14:44)
[2019-05-23] MEDS ORDERED: cefTRIAXone SODIUM 1 GM VIAL ONE (15:08)
[2019-05-23] MEDS ORDERED: DEXTROSE 5%-WATER - 50 ML IVPB ONE (15:08)
[2019-05-23] MEDS: CEFTRIAXONE 1 GM in DEXTROSE 5%-WATER - 50 ML IVPB SCH (16:26)
[2019-05-23] MEDS: PREGABALIN 100 MG CAPSULE PO SCH (21:22)
[2019-05-23] MEDS: ATORVASTATIN CA 20 MG TABLET (FP) PO SCH (21:22)
[2019-05-23] MEDS ORDERED: ACETAMINOPHEN 325 MG TABLET (FP) PO PRN (22:59)
[2019-05-24 08:22] LABS: BASO % 0.9 % (0-2.0); EOS % 2.5 % (0-4.5); HEMATOCRIT 34.3 % (32.4-45.2); LYMPH % 24.8 % (8-40); MCH 33.5 pg (25.7-33.7); MCHC 35.1 g/dl (32.0-36.0); MEAN CELL VOLUME 95.4 fl (80-96); MEAN PLT VOLUME 9.4 fl (7.5-11.1); MONO % 8.2 % (3.8-10.2); NEUT % 63.6 % (42.8-82.8); PLATELET COUNT 181 K/MM3 (134-434); RBC 3.59 M/mm3 (3.60-5.2); RDW 12.2 % (11.6-15.6); WHITE BLOOD COUNT 7.8 K/mm3 (4.0-10.0)
[2019-05-24 09:07] LABS: BILIRUBIN,TOTAL 0.6 mg/dL (0.2-1); BLOOD UREA NITROGEN 17.5 mg/dL (7-18); CALCIUM 8.6 mg/dL (8.5-10.1); CREATININE 0.8 mg/dL (0.55-1.3); POTASSIUM 3.4 mmol/L (3.5-5.1); TOT PROT 5.6 g/dl (6.4-8.2)
[2019-05-24] MEDS ORDERED: PARoxetine HCL 10 MG TABLET ONE (09:46)
[2019-05-24] MEDS ORDERED: PT OWN MED DRAWER 7, Y5N ONE (09:47)
[2019-05-24] MEDS ORDERED: DEXTROSE 5%-WATER - 50 ML IVPB ONE (09:47)
[2019-05-24] MEDS ORDERED: cefTRIAXone SODIUM 1 GM VIAL ONE (09:47)
[2019-05-24] MEDS ORDERED: PARoxetine HCL 20 MG TABLET ONE (09:47)
[2019-05-24] MEDS: D5-1/2NS+20 MEQ KCL - 20 MEQ/1,000 ML INFUS.BAG IV SCH ×2 (09:49→23:42)
[2019-05-24] MEDS: CEFTRIAXONE 1 GM in DEXTROSE 5%-WATER - 50 ML IVPB SCH (09:50)
[2019-05-24] MEDS: PANTOPRAZOLE SODIUM 40 MG VIAL IVPUSH SCH (09:50)
[2019-05-24] MEDS: ENOXAPARIN NA (PORCINE) 40 MG/0.4 ML DISP.SYRIN SQ SCH (09:51)
[2019-05-24] MEDS: PREGABALIN 100 MG CAPSULE PO SCH ×2 (09:51→21:09)
[2019-05-24] MEDS: PAROXETINE HCL 20 MG, PAROXETINE HCL 10 MG PO SCH (09:51)
[2019-05-24] MEDS: ASPIRIN COATED 81 MG TABLET.EC PO SCH (09:52)
[2019-05-24] MEDS ORDERED: PARoxetine HCL 30 MG TABLET PO SCH (10:00)
[2019-05-24] MEDS ORDERED: PATIENT'S OWN MEDICATION (NON-FORMULARY) (Umeclidinium Bromide [Incruse Ellipta] 62.5 MCG) IH SCH (10:00)
[2019-05-24] MEDS ORDERED: MAGNESIUM OXIDE 400 MG TABLET (FP) PO ONE (10:00)
[2019-05-24] MEDS: ATORVASTATIN CA 20 MG TABLET (FP) PO SCH (21:09)
--- NOTE | 2019-05-25 08:56 | PN ---
Progress Note, Physician Chief Complaint: Feels better History of Present Illness: Admitted with diarrhea ,feels better,no diarrhea today - Current Medication List Current Medications: Active Medications Acetaminophen (Tylenol -) 650 mg PO Q6H PRN PRN Reason: FEVER Albuterol Sulfate (Ventolin Hfa Inhaler -) 2 puff IH Q4H PRN PRN Reason: WHEEZING Albuterol/Ipratropium (Duoneb -) 1 amp NEB Q6H PRN PRN Reason: SHORTNESS OF BREATH Aspirin (Ecotrin -) 81 mg PO DAILY [facility] Last Admin: 05/24/19 09:52 Dose: 81 mg Atorvastatin Calcium (Lipitor -) 20 mg PO HS [facility] Last Admin: 05/24/19 21:09 Dose: 20 mg Diltiazem HCl (Cardizem Cd -) 120 mg PO DAILY [facility] Last Admin: 05/24/19 09:52 Dose: 120 mg Enoxaparin Sodium (Lovenox -) 40 mg SQ DAILY [facility] Last Admin: 05/24/19 09:51 Dose: 40 mg Ceftriaxone Sodium 1 gm/ (Dextrose) 50 mls @ 100 mls/hr IVPB DAILY [facility] Last Admin: 05/24/19 09:50 Dose: 100 mls/hr Potassium Chloride/Dextrose/Sod Cl (D5-1/2ns+20 Meq Kcl -) 20 meq in 1,000 mls @ 100 mls/hr IV ASDIR [facility] Last Admin: 05/24/19 23:42 Dose: 100 mls/hr Non-Formulary Medication (Umeclidinium [place] [Incruse Ellipta]) 62.5 mcg IH DAILY [facility] Ondansetron HCl (Zofran Injection) 4 mg IVPB Q6H PRN PRN Reason: NAUSEA Last Admin: 05/23/19 13:16 Dose: 4 mg Pantoprazole Sodium (Protonix Iv) 40 mg IVPUSH DAILY [facility] Last Admin: 05/24/19 09:50 Dose: 40 mg Paroxetine HCl 20 mg/ (Paroxetine HCl 10 mg) 30 mg PO DAILY [facility] Last Admin: 05/24/19 09:51 Dose: 30 mg Pregabalin (Lyrica -) 200 mg PO BID [facility] Last Admin: 05/24/19 21:09 Dose: 200 mg - Objective Vital Signs: Vital Signs Temperature 98.2 F 05/25/19 07:29 Pulse Rate 68 05/25/19 07:29 Respiratory Rate 20 05/25/19 07:29 Blood Pressure 137/63 05/25/19 07:29 O2 Sat by Pulse Oximetry (%) 94 L 05/24/19 21:00 Constitutional: Yes: No Distress Eyes: Yes: WNL HENT: Yes: WNL Neck: Yes: WNL Cardiovascular: Yes: WNL Respiratory: Yes: WNL Gastrointestinal: Yes: Normal Bowel Sounds ...Rectal Exam: Yes: Deferred Breast(s): Yes: WNL Musculoskeletal: Yes: WNL Neurological: Yes: Alert Labs: CBC, BMP 05/24/19 08:02 05/24/19 08:02 Assessment/Plan Advance diet
[2019-05-25] MEDS ORDERED: PARoxetine HCL 20 MG TABLET ONE (09:19)
[2019-05-25] MEDS ORDERED: cefTRIAXone SODIUM 1 GM VIAL ONE (09:19)
[2019-05-25] MEDS ORDERED: PARoxetine HCL 10 MG TABLET ONE (09:19)
[2019-05-25] MEDS ORDERED: DEXTROSE 5%-WATER - 50 ML IVPB ONE (09:20)
[2019-05-25] MEDS: D5-1/2NS+20 MEQ KCL - 20 MEQ/1,000 ML INFUS.BAG IV SCH ×2 (10:11→21:01)
[2019-05-25] MEDS: CEFTRIAXONE 1 GM in DEXTROSE 5%-WATER - 50 ML IVPB SCH (10:12)
[2019-05-25] MEDS: PANTOPRAZOLE SODIUM 40 MG VIAL IVPUSH SCH (10:12)
[2019-05-25] MEDS: ASPIRIN COATED 81 MG TABLET.EC PO SCH (10:14)
[2019-05-25] MEDS: PREGABALIN 100 MG CAPSULE PO SCH ×2 (10:14→21:01)
[2019-05-25] MEDS: PAROXETINE HCL 20 MG, PAROXETINE HCL 10 MG PO SCH (10:14)
[2019-05-25] MEDS: ENOXAPARIN NA (PORCINE) 40 MG/0.4 ML DISP.SYRIN SQ SCH (10:14)
[2019-05-25] MEDS: ATORVASTATIN CA 20 MG TABLET (FP) PO SCH (21:01)
[2019-05-26 08:48] LABS: HEMATOCRIT 36.2 % (32.4-45.2); HEMOGLOBIN 12.8 GM/dL (10.7-15.3); MCH 33.4 pg (25.7-33.7); MCHC 35.5 g/dl (32.0-36.0); MEAN CELL VOLUME 94.1 fl (80-96); MEAN PLT VOLUME 9.9 fl (7.5-11.1); PLATELET COUNT 207 K/MM3 (134-434); RBC 3.84 M/mm3 (3.60-5.2); RDW 12.2 % (11.6-15.6); WHITE BLOOD COUNT 10.2 K/mm3 (4.0-10.0)
--- NOTE | 2019-05-26 08:55 | DS ---
Physical Examination Vital Signs: Vital Signs Temperature 98.7 F 05/26/19 08:14 Pulse Rate 68 05/26/19 08:14 Respiratory Rate 20 05/26/19 08:14 Blood Pressure 107/44 L 05/26/19 08:14 O2 Sat by Pulse Oximetry (%) 94 L 05/25/19 10:00 Findings/Remarks: Feels better,no diarrhea Constitutional: Yes: No Distress Eyes: Yes: WNL HENT: Yes: WNL Neck: Yes: WNL Cardiovascular: Yes: WNL Respiratory: Yes: WNL Gastrointestinal: Yes: WNL ...Rectal Exam: Yes: Deferred Renal/: Yes: WNL Breast(s): Yes: WNL Musculoskeletal: Yes: WNL Neurological: Yes: Alert ...Motor Strength: WNL Psychiatric: Yes: WNL Discharge Summary Reason For Visit: URINARY TRACT INFECTION,DIARRHEA,DEHYDRATION Current Active Problems Diarrhea (Acute) Hypomagnesemia (Acute) UTI (lower urinary tract infection) (Acute) Condition: Stable - Instructions - Home Medications Comprehensive Discharge Medication List: Ambulatory Orders Calcium [Natural Calcium] 600 mg PO BID #0 tablet 10/12/13 Paroxetine HCl [Paxil -] 37.5 mg PO DAILY 06/20/14 Multivitamins [Multivit ([facility] Formulary)] 1 tab PO DAILY 11/24/15 Pregabalin [Lyrica -] 200 mg PO BID 11/24/15 Aspirin Coated [Ecotrin -] 81 mg PO DAILY #0 11/28/15 Diclofenac Sodium [Voltaren-Xr] 100 mg PO DAILY #0 04/09/16 Albuterol Sulfate Inhaler - [Ventolin HFA Inhaler -] 1 - 2 inh PO Q4H PRN Diltiazem HCl [Cartia Xt] 120 mg PO DAILY 05/28/18 Umeclidinium [place] [Incruse Ellipta] 62.5 mcg IH DAILY 05/28/18 Vitamin B Complex 1 each PO DAILY 05/28/18 Atorvastatin Ca [Lipitor] 20 mg PO HS tablet 05/30/18 Cefuroxime Axetil [Ceftin -] 250 mg PO BID 7 Days #14 tablet 05/30/18 Ranitidine [Zantac -] 150 mg PO DAILY #30 tablet 05/30/18
[2019-05-26] MEDS ORDERED: PARoxetine HCL 20 MG TABLET ONE (09:16)
[2019-05-26] MEDS ORDERED: PARoxetine HCL 10 MG TABLET ONE (09:16)
[2019-05-26] MEDS ORDERED: cefTRIAXone SODIUM 1 GM VIAL ONE (09:17)
[2019-05-26] MEDS ORDERED: DEXTROSE 5%-WATER - 50 ML IVPB ONE (09:17)
[2019-05-26] MEDS: PANTOPRAZOLE SODIUM 40 MG VIAL IVPUSH SCH (09:20)
[2019-05-26] MEDS: PAROXETINE HCL 20 MG, PAROXETINE HCL 10 MG PO SCH (09:20)
[2019-05-26] MEDS: ASPIRIN COATED 81 MG TABLET.EC PO SCH (09:21)
[2019-05-26] MEDS: PREGABALIN 100 MG CAPSULE PO SCH (09:21)
[2019-05-26] MEDS: ENOXAPARIN NA (PORCINE) 40 MG/0.4 ML DISP.SYRIN SQ SCH (09:23)
[2019-05-26 09:24] LABS: ALBUMIN 3.1 g/dl (3.4-5.0); BILIRUBIN,TOTAL 1.1 mg/dL (0.2-1); BLOOD UREA NITROGEN 8.7 mg/dL (7-18); CALCIUM 9.2 mg/dL (8.5-10.1); CREATININE 0.9 mg/dL (0.55-1.3); TOT PROT 6.3 g/dl (6.4-8.2)
[2019-05-26] MEDS: CEFTRIAXONE 1 GM in DEXTROSE 5%-WATER - 50 ML IVPB SCH (09:24)
[2019-05-26 11:08] VITALS: BP 136/56; PULSE 80; TEMP 98.4
== END 2019-05-26 11:07 | disposition home or self-care (01) | DRG 690 ==
LOC: JER 11:32 → JERBED 20:09 → J5S 23:43
PROVIDERS: ADMIT Internal Medicine; ATTEND Internal Medicine
DX: N39.0 Urinary tract infection, site not specified (principal); I48.92 Unspecified atrial flutter; K52.9 Noninfective gastroenteritis and colitis, unspecified; G35 Multiple sclerosis; J44.9 Chronic obstructive pulmonary disease, unspecified; R63.4 Abnormal weight loss; R19.7 Diarrhea, unspecified; Z87.891 Personal history of nicotine dependence; E83.42 Hypomagnesemia; E78.00 Pure hypercholesterolemia, unspecified; I10 Essential (primary) hypertension
CPT/HCPCS: 36415; 74177-TC; 80048; 80053; 81003; 83605; 83690; 83735; 84443; 85025; 85027; 93005; 93010; 99285-25; J7030

== ENCOUNTER 2024-01-21 13:28 | Emergency (ER) | payer OTHER, BC ==
[2024-01-21 13:37] VITALS: BP 130/49; PULSE 78; RESP 18; TEMP 97.4; BMI 18.1
[2024-01-21] MEDS: MAG HYDROX/AL HYDROX/SIMETH 30 ML UNIT-DOSE CUP PO ONE (14:30)
[2024-01-21] MEDS ORDERED: ACETAMINOPHEN INJECTION 100 ML IVPB ONE (14:49)
[2024-01-21] MEDS ORDERED: MAG HYDROX/AL HYDROX/SIMETH 30 ML UNIT-DOSE CUP ONE (14:50)
[2024-01-21] MEDS ORDERED: FAMOTIDINE 20 MG/50 ML IVPB 20 MG/50 ML MG IVPB ONE (14:50)
[2024-01-21] MEDS: ACETAMINOPHEN 1000 MG/100 ML BAG IVPB ONE (15:00)
[2024-01-21 15:21] LABS: EPI CELLS 17 /uL (0-25.1); HYALINE CASTS 0 /uL (0-3.1); PH,URINE 6.5 (5.0-8.0); URINE APPEARANCE CLOUDY; URINE BACTERIA 390 /uL (0-1359); URINE BILIRUBIN NEGATIVE (NEGATIVE); URINE COLOR DK YELLOW; URINE GLUCOSE (UA) NEGATIVE (NEGATIVE); URINE KETONE TRACE (NEGATIVE); URINE LEUK ESTERASE 2+ (NEGATIVE); URINE NITRITE NEGATIVE (NEGATIVE); URINE PROTEIN NEGATIVE (NEGATIVE); URINE UROBILINOGEN 0.2 mg/dL (0.2-1.0); URINE WBC 47 /uL (0-25.8)
[2024-01-21] MEDS: FAMOTIDINE 20 MG/50 ML IVPB 20 MG/50 ML MG IVPB ONE (15:24)
[2024-01-21] MEDS ORDERED: CEFTRIAXONE 1 GM/50 ML BAG ONE (15:30)
[2024-01-21 15:34] LABS: BASO % 0.4 % (0-2.0); EOS % 0.8 % (0-4.5); HEMATOCRIT 42.2 % (32.4-45.2); HEMOGLOBIN 14.1 GM/dL (10.7-15.3); LYMPH % 8.2 % (8-40); MCH 32.9 pg (25.7-33.7); MCHC 33.5 g/dl (32.0-36.0); MEAN CELL VOLUME 98.1 fl (80-96); MEAN PLT VOLUME 8.2 fl (7.5-11.1); MONO % 9.7 % (3.8-10.2); NEUT % 80.9 % (42.8-82.8); PLATELET COUNT 222 10^3/uL (134-434); WHITE BLOOD COUNT 6.6 K/mm3 (4.0-10.0)
[2024-01-21 15:40] LABS: INR 1.05 (0.83-1.09); PROTHROMBIN TIME (PATIENT) 12.2 SEC (9.7-13.0)
[2024-01-21 15:43] LABS: ACTIVATED PTT 27.1 SECONDS (25.2-36.5)
[2024-01-21 15:55] LABS: POTASSIUM 4.3 mmol/L (3.5-5.1)
[2024-01-21 15:57] LABS: CALCIUM 9.3 mg/dL (8.5-10.1); URINE RBC 441.6 /uL (0-23.9); YEAST NONE SEEN (NEGATIVE)
[2024-01-21 15:58] LABS: BLOOD UREA NITROGEN 17.6 mg/dL (7-18); MAGNESIUM 1.4 mg/dL (1.8-2.4)
[2024-01-21 16:01] LABS: BILIRUBIN,TOTAL 0.9 mg/dL (0.2-1); CREATININE 0.7 mg/dL (0.55-1.3); PHOSPHOROUS 2.9 mg/dL (2.5-4.9); TOT PROT 7.2 g/dl (6.4-8.2)
[2024-01-21] MEDS: SODIUM CHLORIDE 0.9% 500 ML INFUS.BAG IV ONE (16:08)
[2024-01-21] MEDS: CEFTRIAXONE 1,000 MG in DEXTROSE 5%-WATER - 50 ML IVPB ONE (16:09)
[2024-01-21 16:11] LABS: LACTIC ACID 2.4 mmol/L (0.4-2.0)
[2024-01-21] MEDS ORDERED: DIPHTH,PERTUSS(ACELL),TET 0.5 ML DISP.SYRIN IM ONE ×2 (16:14→16:20)
[2024-01-21] MEDS: DIPHTH,PERTUSS(ACELL),TET 0.5 ML DISP.SYRIN IM ONE (16:21)
[2024-01-21] MEDS: MAGNESIUM SULF 50% (8.12 MEQ/2 ML-1 GM VIAL) IVPB ONE (16:23)
[2024-01-21] MEDS ORDERED: MAGNESIUM SULFATE IN WATER 2 GM/50 ML IVPB IVPB ONE (16:31)
[2024-01-21] MEDS: LACTATED RINGERS SOLUTION 1000 ML INFUS.BAG IV ONE (17:49)
[2024-01-23 15:08] LABS: CHOLESTEROL 155 mg/dL (50-200)
[2024-01-23 15:09] LABS: LDL CHOLESTEROL (ONLY SJRH) 86 mg/dL (5-100)
[2024-01-23 15:11] LABS: HDL CHOLESTEROL 58 mg/dL (40-60)
== END 2024-01-21 22:56 | disposition home or self-care (01) ==
LOC: JER 13:28
PROC: 3E03329 Introduction of Other Anti-infective into Peripheral Vein, Percutaneous Approach (ICD-10-PCS; principal; 2024-01-21)
PROC: 3E033NZ Introduction of Analgesics, Hypnotics, Sedatives into Peripheral Vein, Percutaneous Approach (ICD-10-PCS; 2024-01-21)
PROC: 3E033GC Introduction of Other Therapeutic Substance into Peripheral Vein, Percutaneous Approach (ICD-10-PCS; 2024-01-21)
PROC: 3E033GC Introduction of Other Therapeutic Substance into Peripheral Vein, Percutaneous Approach (ICD-10-PCS; 2024-01-21)
PROC: 3E0234Z Introduction of Serum, Toxoid and Vaccine into Muscle, Percutaneous Approach (ICD-10-PCS; 2024-01-21)
DX: R63.0 Anorexia (principal); R53.1 Weakness; N39.0 Urinary tract infection, site not specified; K29.80 Duodenitis without bleeding; Z20.822 Contact with and (suspected) exposure to COVID-19
CPT/HCPCS: 0241U-QW; 36415; 71045-TC-FY; 71260-TC; 74177-TC; 80053; 80061; 81003; 83605; 83690; 83735; 84100; 84484; 85025; 85610; 85730; 86850; 86870; 86880; 86900; 86901; 86902; 87086; 87186; 90471; 90715; 93005; 93010; 96365; 96367; 96375; 99285-25; J0131; Q9967

== ENCOUNTER 2025-01-14 15:24 | Inpatient (IN) | payer OTHER, BC ==
[2025-01-14] MEDS ORDERED: MORPHINE SULFATE 2 MG/ML SYRINGE ONE (16:34)
[2025-01-14] MEDS: morphine CARPU-JECT 2 MG/1 ML DISP.SYRIN IVPUSH ONE (16:52)
[2025-01-14 18:04] LABS: BASO % 0.3 % (0-2.0); EOS % 0.7 % (0-4.5); HEMATOCRIT 36.2 % (32.4-45.2); HEMOGLOBIN 12.6 GM/dL (10.7-15.3); LYMPH % 4.7 % (8-40); MCH 32.6 pg (25.7-33.7); MCHC 34.7 g/dl (32.0-36.0); MEAN PLT VOLUME 7.1 fl (7.5-11.1); NEUT % 85.3 % (42.8-82.8); PLATELET COUNT 174 10^3/uL (134-434); RBC 3.85 M/mm3 (3.60-5.2); RDW 13.6 % (11.6-15.6); WHITE BLOOD COUNT 5.4 K/mm3 (4.0-10.0)
[2025-01-14 18:08] LABS: PROTHROMBIN TIME (PATIENT) 10.9 SEC (9.7-13.0)
[2025-01-14 18:11] LABS: ACTIVATED PTT 27.5 SECONDS (25.2-36.5)
[2025-01-14 18:34] LABS: POTASSIUM 4.1 mmol/L (3.5-5.1)
[2025-01-14 18:37] LABS: ALBUMIN 3.2 g/dl (3.4-5.0); CALCIUM 8.5 mg/dL (8.5-10.1)
[2025-01-14 18:38] LABS: BLOOD UREA NITROGEN 22.1 mg/dL (7-18)
[2025-01-14 18:41] LABS: CREATININE 0.8 mg/dL (0.55-1.3)
[2025-01-14 18:42] LABS: BILIRUBIN,TOTAL 0.5 mg/dL (0.2-1)
[2025-01-14] MEDS ORDERED: morphine SULFATE 4 MG/ML VIAL ONE (22:44)
[2025-01-14] MEDS: MORPHINE SULFATE 2 MG/ML SYRINGE IVPUSH PRN (23:06)
[2025-01-14] MEDS: LIDOCAINE PATCH REMOVAL MC SCH (23:54)
[2025-01-14] MEDS: VERAPAMIL HCL 180 MG E.R. TABLET PO SCH (23:54)
[2025-01-15] MEDS: ACETAMINOPHEN 325 MG TABLET (FP) PO PRN (01:54)
[2025-01-15] MEDS: METOCLOPRAMIDE HCL 10 MG TABLET (FP) PO SCH (06:45)
[2025-01-15 08:30] LABS: BASO % 0.4 % (0-2.0); HEMATOCRIT 35.4 % (32.4-45.2); HEMOGLOBIN 11.9 GM/dL (10.7-15.3); LYMPH % 5.4 % (8-40); MCH 32.1 pg (25.7-33.7); MCHC 33.7 g/dl (32.0-36.0); MEAN CELL VOLUME 95.4 fl (80-96); MEAN PLT VOLUME 7.9 fl (7.5-11.1); MONO % 9.9 % (3.8-10.2); NEUT % 83.3 % (42.8-82.8); PLATELET COUNT 183 10^3/uL (134-434); RBC 3.71 M/mm3 (3.60-5.2); RDW 13.1 % (11.6-15.6); WHITE BLOOD COUNT 5.5 K/mm3 (4.0-10.0)
[2025-01-15 08:32] LABS: POTASSIUM 3.8 mmol/L (3.5-5.1)
[2025-01-15 08:34] LABS: BLOOD UREA NITROGEN 17.4 mg/dL (7-18); CALCIUM 8.6 mg/dL (8.5-10.1)
[2025-01-15 08:38] LABS: CREATININE 0.6 mg/dL (0.55-1.3)
[2025-01-15] MEDS ORDERED: DIPHTH,PERTUSS(ACELL),TET VAC 0.5 ML VIAL IM ONE (10:00)
[2025-01-15] MEDS: PANTOPRAZOLE 40 MG TABLET PO SCH (10:02)
[2025-01-15] MEDS: DOXYCYCLINE HYCLATE 100 MG CAPSULE PO SCH (10:02)
[2025-01-15] MEDS: LIDOCAINE 5% TOPICAL PATCH TP SCH ×2 (10:02→11:27)
[2025-01-15] MEDS: LIPASE/PROTEASE/AMYLASE 36,000 UNIT CAPSULE PO SCH (10:03)
[2025-01-15] MEDS: GABAPENTIN 300 MG CAPSULE PO SCH (11:27)
[2025-01-15] MEDS: ONDANSETRON *ODT* 4 MG TABLET SL PRN (11:27)
[2025-01-15] MEDS: DIPHTH,PERTUSS(ACELL),TET VAC 0.5 ML VIAL IM ONE (11:28)
[2025-01-15] MEDS: FOLIC ACID 1 MG TABLET (FP) PO SCH (14:00)
[2025-01-15] MEDS: LIDOCAINE PATCH REMOVAL MC SCH (21:47)
[2025-01-16] MEDS: ACETAMINOPHEN 500 MG TABLET (FP) PO PRN (09:15)
[2025-01-16] MEDS: ALBUTEROL SO4 0.083% IH SOL 2.5 MG/3 ML VIAL.NEB. NEB SCH (15:05)
[2025-01-16] MEDS: METHENAMINE HIPPURATE 1 GM PO SCH (15:51)
[2025-01-16] MEDS: FLUTICASONE/UMECLIDIN/VILANTER(200-62.5-25 TRELEGY ELLIPTA) INAHLER IH SCH (15:52)
[2025-01-16] MEDS: VONOPRAZAN FUMARATE 20 MG PO SCH (21:03)
[2025-01-16] MEDS: DIROXIMEL FUMARATE 231 MG PO SCH (21:34)
[2025-01-17 12:07] VITALS: BMI 16.1
[2025-01-18 09:29] VITALS: TEMP 97.6
[2025-01-18 13:40] VITALS: BP 123/50; PULSE 82; RESP 18
== END 2025-01-18 15:34 | DRG 562 ==
LOC: JER 15:24 → JERBED 20:38 → INTOOBSV 20:38 → J7W 01-15 01:12 → OBSVTOIN 01-15 13:51
PROVIDERS: ADMIT Student in an Organized Health Care Education/Training Program; ATTEND Internal Medicine
PROC: 0PSHXZZ Reposition Right Radius, External Approach (ICD-10-PCS; principal; 2025-01-14)
DX: S52.531A Colles' fracture of right radius, initial encounter for closed fracture (principal); E43 Unspecified severe protein-calorie malnutrition; Z68.1 Body mass index [BMI] 19.9 or less, adult; S62.637A Displaced fracture of distal phalanx of left little finger, initial encounter for closed fracture; I10 Essential (primary) hypertension; K21.9 Gastro-esophageal reflux disease without esophagitis; M54.50 Low back pain, unspecified; I48.91 Unspecified atrial fibrillation; F41.8 Other specified anxiety disorders; G35 Multiple sclerosis; J44.9 Chronic obstructive pulmonary disease, unspecified; E78.5 Hyperlipidemia, unspecified; W18.30XA Fall on same level, unspecified, initial encounter; Y92.099 Unspecified place in other non-institutional residence as the place of occurrence of the external cause; Y99.9 Unspecified external cause status; Z85.118 Personal history of other malignant neoplasm of bronchus and lung
CPT/HCPCS: 36415; 70450-TC; 71046-TC-FY; 71250-TC; 72125-TC; 72170-TC-FY; 73090-TC-RT-FY; 73110-TC-RT-FY; 73130-TC-LT-FY; 73130-TC-RT-FY; 80048; 80053; 82962; 85025; 85610; 85730; 86140; 86850; 86870; 86880; 86900; 86901; 86902; 87635; 93005; 93010; 94640; 97116-GP; 97161-GP; 99285-25; G0378; Q0162

== ENCOUNTER 2025-05-18 10:32 | Inpatient (IN) | payer OTHER, BC ==
[2025-05-18] MEDS ORDERED: IBUPROFEN 600 MG TABLET (FP) PO ONE (11:29)
[2025-05-18] MEDS ORDERED: LIDOCAINE 5% TOPICAL PATCH ONE (11:30)
[2025-05-18] MEDS: LIDOCAINE 5% TOPICAL PATCH TP ONE ×2 (11:34→15:53)
[2025-05-18] MEDS: IBUPROFEN 600 MG TABLET (FP) PO ONE (11:35)
[2025-05-18 14:53] LABS: ABSOLUTE IMMATURE GRANULOCYTES 0.02 x10^3/uL (0.0-0.031); BASOPHILS # 0.03 x10^3/uL (0.01-0.08); EOSINOPHIL % 2.4 % (0.7-5.8); EOSINOPHILS # 0.17 x10^3/uL (0.04-0.36); MCHC 32.3 g/dl (32.2-35.5); MEAN CELL VOLUME 101.3 fl (79.4-94.8); MEAN PLT VOLUME 9.5 fl (9.4-12.3); MONOCYTE # 0.49 x10^3/uL (0.24-0.86); MONOCYTE % 6.9 % (4.7-12.5); RDW 15.0 % (12.4-16.6)
[2025-05-18 15:35] LABS: CO2 28.0 mmol/L (21-32)
[2025-05-18 15:36] LABS: GLUCOSE,RANDOM 89.0 mg/dL (74-106)
[2025-05-18 15:38] LABS: SGOT/AST 20.0 U/L (15-37); SGPT/ALT 12.0 U/L (13-61)
[2025-05-18 15:39] LABS: CREATININE 0.6 mg/dL (0.55-1.3)
[2025-05-18 15:40] LABS: TOT PROT 5.6 g/dl (6.4-8.2)
[2025-05-18 15:41] LABS: ALK PHOS 122.0 U/L (45-117)
[2025-05-18 18:19] VITALS: BMI 16.7
[2025-05-18] MEDS: HEPARIN NA (PORCINE) 5,000 UNITS/ML 1ML VIAL SQ SCH (21:09)
[2025-05-18] MEDS: LIDOCAINE PATCH REMOVAL MC ONE ×2 (21:20→21:21)
[2025-05-18] MEDS: MIRTAZAPINE 15 MG TABLET (FP) PO SCH (22:43)
[2025-05-18] MEDS: MELATONIN 1 MG TABLET PO SCH (22:43)
[2025-05-19 10:15] LABS: ABSOLUTE IMMATURE GRANULOCYTES 0.04 x10^3/uL (0.0-0.031); BASOPHILS # 0.02 x10^3/uL (0.01-0.08); EOSINOPHIL % 2.8 % (0.7-5.8); EOSINOPHILS # 0.14 x10^3/uL (0.04-0.36); MCHC 32.9 g/dl (32.2-35.5); MEAN CELL VOLUME 100.8 fl (79.4-94.8); MEAN PLT VOLUME 9.8 fl (9.4-12.3); MONOCYTE # 0.40 x10^3/uL (0.24-0.86); MONOCYTE % 8.1 % (4.7-12.5); RDW 14.6 % (12.4-16.6)
[2025-05-19] MEDS: VERAPAMIL HCL 120 MG CAP SUSTAINED RELEASE PO SCH (10:31)
[2025-05-19] MEDS: CEFTRIAXONE 1 GM in DEXTROSE 5%-WATER - 50 ML IVPB SCH (10:31)
[2025-05-19] MEDS: PANTOPRAZOLE 40 MG TABLET PO SCH (10:32)
[2025-05-19 10:56] LABS: CO2 28.0 mmol/L (21-32); GLUCOSE,RANDOM 90.0 mg/dL (74-106)
[2025-05-19 10:58] LABS: SGOT/AST 15.0 U/L (15-37); SGPT/ALT 12.0 U/L (13-61)
[2025-05-19 11:00] LABS: TOT PROT 4.9 g/dl (6.4-8.2)
[2025-05-19 11:01] LABS: ALK PHOS 120.0 U/L (45-117)
[2025-05-19 11:21] LABS: CREATININE 0.5 mg/dL (0.55-1.3)
[2025-05-19] MEDS: CALCITONIN - SALMON SYNTHETIC 200 UNITS/SPRAY NS SCH (12:26)
[2025-05-19 13:55] LABS: HCV DIAGNOSTIC IN-HOUSE W/RFLX NON-REACTIVE (NONREACTIVE)
[2025-05-19 13:58] LABS: HIV INTERPRETATION NEGATIVE (NEGATIVE)
[2025-05-20] MEDS: MULTIVITAMINS (DAILY MVI) TABLET (FP) PO SCH (15:36)
[2025-05-20] MEDS: ASCORBIC ACID 500 MG TABLET (FP) PO SCH (21:14)
[2025-05-21] MEDS: DOCUSATE SODIUM 100 MG CAPSULE (FP) PO PRN (13:16)
[2025-05-21] MEDS: ACETAMINOPHEN 325 MG TABLET (FP) PO PRN (23:07)
[2025-05-24 17:06] VITALS: RESP 18
[2025-05-24] MEDS: AMINO ACIDS/PROTEIN HYDROLYS 30 ML LIQUID.PKT PO SCH (17:40)
[2025-05-24] MEDS: ALBUTEROL SO4 2.5/IPRATROPIUM 0.5 INH SOL 3 ML VIAL.NEB. NEB PRN (20:27)
[2025-05-24] MEDS: ACETAMINOPHEN 325 MG TABLET (FP) PO ONE (21:48)
[2025-05-25] MEDS: LEPTOSPERMUM HONEY (MEDIHONEY) TP SCH (13:17)
[2025-05-25 16:04] VITALS: BP 109/45; PULSE 68; TEMP 97.2
== END 2025-05-25 19:09 | DRG 552 ==
LOC: JERFT 10:32 → JER 10:32 → JERBED 13:16 → J5S 18:01 → OBSVTOIN 05-19 11:33
PROVIDERS: ADMIT Family Medicine; ATTEND Family Medicine
DX: S32.000A Wedge compression fracture of unspecified lumbar vertebra, initial encounter for closed fracture (principal); R64 Cachexia; Z68.1 Body mass index [BMI] 19.9 or less, adult; J44.9 Chronic obstructive pulmonary disease, unspecified; I10 Essential (primary) hypertension; G35 Multiple sclerosis; E78.5 Hyperlipidemia, unspecified; R32 Unspecified urinary incontinence; M54.50 Low back pain, unspecified; R20.2 Paresthesia of skin; M48.061 Spinal stenosis, lumbar region without neurogenic claudication; X58.XXXA Exposure to other specified factors, initial encounter; Y93.9 Activity, unspecified; Y92.89 Other specified places as the place of occurrence of the external cause; Y99.9 Unspecified external cause status
CPT/HCPCS: 36415; 71045-TC-FY; 71250-TC; 72128-TC; 72131-TC; 72148-TC; 80053; 85025; 86803; 87389; 87635; 93005; 93010; 94640; 97116-GP; 97162-GP; 99285-25; G0378